=== PATIENT | male | born 1930 | race Caucasian/White ===

== ENCOUNTER → 2017-05-08 | Outpatient (CLI) | payer MEDICARE, OTHER ==
[~2017-05-08] MED LIST: AFRIN15 ML NS; ASPIR 8181 MG PO; ASPIRIN EC325 M1 PO; AUGMENTIN 875875 MG PO; AVODART0.5 MG PO; CILOSTAZOL 100100 MG PO; CIPRO500 M1 PO; CIPROFLOXACIN500 M1 PO; COLACE100 MG PO; ELMIRON 100 MG100 M1 PO; FLOMAX0.4 MG PO; HCTZ PO; HYDROCODONE-AP1 EAC6 PAD; HYDROCODONE-AP1 EAC6 PO; HYOSCYAMINE0.125 MG PO; IMDUR 60 MG TAB60 M1 PO; IMDUR60 MG PO; ISORDIL40 MG PO; LIPITOR10 MG PO; LIPITOR40 MG PO; LIPITOR80 MG PO; LISINOPRIL40 MG PO; LOPRESSOR25 PO; NITROFURANTOIN100 MG PO; NITROGLYCERIN0.4 MG PO; NITROGLYCERIN0.4 MG SUBLING; NITROQUICK0.4 MG SL; NORVASC 5 MG TAB5 MG PO; NORVASC10 MG PO; NORVASC5 MG PO; PHENAZOPYRIDIN200 M2 PO; PLAVIX 75 MG TA75 M1 PO; PRAVACHOL40 MG PO; PRAVACHOL80 MG PO; PRINIVIL20 MG PO; PROSCAR 5MG TABL5 MG PO; TOPROL XL100 MG PO; TOPROL XL25 MG PO
[2017-05-08 09:03] LABS: CREATININE 0.9 mg/dL (0.6-1.3)
== END ==
LOC: M.LAB 08:28 → M.CT 08:30
PROVIDERS: Family Medicine
DX: R91.1 Solitary pulmonary nodule (principal); I25.10 Atherosclerotic heart disease of native coronary artery without angina pectoris; I10 Essential (primary) hypertension; I95.9 Hypotension, unspecified

== ENCOUNTER → 2018-07-08 | Outpatient (CLI) | payer MEDICARE, OTHER ==
--- NOTE | 2018-07-08 10:39 | 2DMMODE ---
[place] [address] 2 D/M-MODE ECHOCARDIOGRAM Name: POSADASMACIEL Room: [facility]#: [id number] Admission: 07/08/18 Attend Phys: Chay Moore, Discharge: Date of : 32 Date of Service: 07/08/18 [facility] Report #: [id number] THIS REPORT FOR: //name// APPROVED REPORT Study performed: 07/08/2018 09:52:47 EXAM: Comprehensive 2D, Doppler, and color-flow Echocardiogram Patient Location: Out-Patient BSA: 1.86 HR: 69 bpm BP: 150/69 mmHg Other Information Study Quality: Good Indications Aortic Valve Disease 2D Dimensions IVSd: 14.24 (7-11mm) LVOT Diam: 20.53 (18-24mm) LVDd: 51.39 mm PWd: 11.23 (7-11mm) Ascending Ao: 29.06 (22-36mm) LVDs: 34.54 (25-40mm) Aortic Root: 31.11 mm Volumes Left Atrial Volume (Systole) LA ESV Index: 22.90 mL/m2 Aortic Valve AoV Peak Anam.: 1.93 m/s AO Peak Gr.: 14.82 mmHg LVOT Max P.75 mmHg AO Mean Gr.: 7.89 mmHg LVOT Mean P.40 mmHg LVOT Max V: 1.09 m/s AO V2 VTI: 41.73 cm LVOT Mean V: 0.72 m/s STEPHANIE (VTI): 1.94 cm2 LVOT V1 VTI: 24.46 cm Mitral Valve E/A Ratio: 0.64 MV Decel. Time: 246.56 ms MV E Max Anam.: 0.91 m/s MV PHT: 71.50 ms MVA (PHT): 3.08 [place]2 [place] [address] 2 D/M-MODE ECHOCARDIOGRAM Name: MACIEL POSADAS ARON Room: [facility]#: [id number] Admission: 07/08/18 Attend Phys: Chay Moore, Discharge: Date of : 32 Date of Service: 07/08/18 1038 Report #: [id number] TDI E/Lateral E': 13.00 E/Medial E': 10.11 Medial E' Anam.: 0.09 m/s Lateral E' Anam.: 0.07 m/s Pulmonary Valve PV Peak Anam.: 0.96 m/s PV Peak Gr.: 3.68 mmHg Left Ventricle The left ventricle is normal size. There is akinesis involving the inferior andl inferolateral yi. There is normal left ventricular wall thickness. Left ventricular systolic function is mildly decreased. LVEF is 45-50%. Grade I - abnormal relaxation pattern. Right Ventricle The right ventricle is normal size. The right ventricular systolic function is normal. Atria The left atrium size is normal. The right atrium size is normal. Aortic Valve Aortic valve is mildly calcified. No aortic regurgitation is present. Mild aortic stenosis. Mitral Valve The mitral valve is normal in structure. Mild mitral regurgitation. No evidence of mitral valve stenosis. Tricuspid Valve The tricuspid valve is normal in structure. There is no tricuspid valve regurgitation noted. Pulmonic Valve The pulmonary valve is normal in structure. There is no pulmonic valvular regurgitation. Great Vessels The aortic root is normal in size. IVC is normal in size and collapses >50% with inspiration. Pericardium There is [place] [address] 2 D/M-MODE ECHOCARDIOGRAM Name: MACIEL POSADAS ARON [id number] Admission: 07/08/18 Attend Phys: Chay Moore, Discharge: Date of : 32 Date of Service: 07/08/18 [facility] Report #: [id number] <Conclusion> The left ventricle is normal size. There is normal left ventricular wall thickness. Left ventricular systolic function is mildly decreased. LVEF is 45-50%. Grade I - abnormal relaxation pattern. There is akinesis involving the inferior andl inferolateral yi. Aortic valve is mildly calcified. Mild aortic stenosis. Mild mitral regurgitation. IVC is normal in size and collapses >50% with inspiration. <ELECTRONICALLY SIGNED> By: Chay Moore MD, FACC 07/08/18 1038 1038 1038 Chay Moore MD, FACC /INF
== END ==
LOC: M.CRD 04-29 09:00
DX: I08.0 Rheumatic disorders of both mitral and aortic valves (principal)

== ENCOUNTER → 2018-08-03 | Outpatient (CLI) | payer MEDICARE, OTHER ==
--- NOTE | 2018-08-03 17:05 | CARDNUC ---
[place] [address] CARDIAC NUCLEAR IMAGING REPORT Name: CUAUHTEMOCST ARON Room: [facility]#: [id number] Admission: 08/03/18 Attend Phys: Chay Moore, Discharge: Date of : 32 Date of Service: 08/03/18 1705 Report #: [id number] THIS REPORT FOR: //name// APPROVED REPORT Study performed: 08/03/2018 09:43:05 Indication: Chest pain, Dyspnea Patient Location: Out-Patient Stress Tech: Angie Price Stress Nurse: Siena Carlin RN Ht: 5 ft 6 in Wt: 169 lbs BSA: 1.86 m2 BMI: 27.27 Medical History Medical History: Angina, CAD s/p WI, CAD s/p stent, Fatigue, Former Smoker, HTN, PVD, SOB, Weakness Medications: Carvedilol, Isosorbide, Lisinopril, Lasix, ASA 81 Mg, Digoxin, Amlodipine. Allergies: Sulfa Cardiac Risk Factors: Age, FHX of CAD, HTN, SOB, Tobacco History (Former), PVD. Previous Cardiac Procedures: Myocardial infarction, PCI Pretest Chest Pain Characteristics: No chest pain Exercise History: Sedentary Physical Disabilities: Unstable gait, weak knees. Meds Held (24 hrs): Carvedilol, Isosorbide. Resting Data Rest SPECT myocardial perfusion imaging was performed in supine position 30 minutes following the intravenous injection of 11.3 mCi of Tc-99m Sestamibi. Time of rest injection: 07:55 The images were gated to evaluate regional wall motion and calculate left ventricular ejection fraction. Administration Route: IV Administration Site: Right AC Pharmacologic Stress Pharmacologic stress test was performed by injecting Regadenoson 0.4 mg IV push over 10-15 seconds immediately followed by the intravenous injection of 33.1 mCi of Tc-99m Sestamibi. Time of stress injection: 10:00 Administration Route: [place] [address] CARDIAC NUCLEAR IMAGING REPORT Name: MACIEL POSADAS Room: [facility]#: [id number] Admission: 08/03/18 Attend Phys: Chay Moore, Discharge: Date of : 32 Date of Service: 08/03/18 1705 Report #: [id number] Administration Site: Right AC Heart Rate at time of stress injection: 80 bpm. Gated Stress SPECT was performed 40 minutes after stress injection. The images were gated to evaluate regional wall motion and calculate left ventricular ejection fraction. Prone imaging was performed. Stress Test Details Stress Test: Pharmacologic stress testing performed using 0.4 mg of regadenoson per 5 mL given IV over 10 seconds. Reason for pharmacologic stress test: Unstable gait, weak knees.. HR Max Heart Rate (APMHR): 134 bpm Resting HR: 62 bpm Target HR (85% APMHR): 113 bpm Max HR Achieved: 80 bpm % of APMHR: 59 Recovery HR: 73 bpm BP Resting BP: 208/84 mmHg Max BP: 164/84 mmHg Recovery BP: 178/77 mmHg ECG Resting ECG: Sinus Rhythm, LBBB Stress ECG: Sinus Rhythm, LBBB ST Change: None Arrhythmia: None Recovery ECG: Sinus Rhythm, LBBB Recovery ST Change: None Recovery Arrhythmia: None Clinical Reason for Termination: Completed protocol Stress Symptoms: Dyspnea, Lightheaded, Chest Pressure. Exercise duration: 0 min 0 sec Exercise capacity: 1.00 METs The patient noted mild chest pressure with Lexiscan infusion felt to be due to medication affect. Nurse Comments 87 year old male present with recent increase of SOA and some CP. Patient tolerated sitting Lexiscan. Recovery unremarkable with PO caffeine. Patient escorted by staff to Nuclear Medicine for images. Patient stable with no [place] [address] CARDIAC NUCLEAR IMAGING REPORT Name: CUAUHTEMOCMACIEL Room: [facility]#: [id number] Admission: 08/03/18 Attend Phys: Chay Moore, Discharge: Date of : 32 Date of Service: 08/03/18 1705 Report #: [id number] Stress ECG Conclusion Baseline 12-lead EKG shows sinus rhythm with bundle branch block. EKGs obtained during and post Lexiscan infusion show sinus rhythm with left bundle-branch block. There were no stress-induced arrhythmias. Study Quality Study: Good Artifact: No artifact Study Data At rest, the left ventricular ejection fraction was 42%.. Post stress, the left ventricular ejection was 38%.. TID = 1.03. Perfusion There is a large in size severe intensity fixed defect involving the basal to mid inferior and inferolateral wall consistent with prior infarct. No reversible defects were identified. Wall Motion The inferior wall is akinetic the midportion with portions of the basal inferior and inferolateral wall being hypokinetic. Nuclear Conclusion ECG Findings: non-diagnostic Clinical Findings: equivocal Nuclear Findings: negative for ischemia Exercise Capacity: not assessed Left Ventricular Function: abnormal Myocardial perfusion images show evidence of prior inferolateral infarct with no evidence of ongoing ischemia. Left jugular systolic function appears to be mild moderately decreased consistent with an ischemic cardiomyopathy. This is not a high risk study. <Conclusion> Baseline 12-lead EKG shows sinus rhythm with bundle branch block. EKGs obtained during and post Lexiscan infusion show sinus rhythm with left bundle-branch block. There were no stress-induced arrhythmias. <ELECTRONICALLY SIGNED> By: Chay Moore MD, FACC 08/03/181704 04 04 Chay Moore MD, FACC /INF
== END ==
LOC: M.NUC 07-08 11:24
DX: I25.118 Atherosclerotic heart disease of native coronary artery with other forms of angina pectoris (principal); I10 Essential (primary) hypertension; I73.9 Peripheral vascular disease, unspecified; Z88.2 Allergy status to sulfonamides; Z87.891 Personal history of nicotine dependence; Z95.0 Presence of cardiac pacemaker; Z79.899 Other long term (current) drug therapy; Z82.49 Family history of ischemic heart disease and other diseases of the circulatory system

== ENCOUNTER 2018-08-27 15:56 | Inpatient (IN) | payer MEDICARE, OTHER ==
[~2018-08-27] VITALS: Ht 170.2 cm; Wt 70.3 kg
[2018-08-27] MEDS ORDERED: LASIX 80 MG TAB80 MG PO (16:03)
[2018-08-27] MEDS ORDERED: ASPIR 8181 MG PO (16:04)
[2018-08-27 16:35] LABS: HEMATOCRIT 47.7 % (42.0-52.0); HEMOGLOBIN 16.5 gm/dL (14.0-18.0); MCH 33.3 pg (26.0-34.0); MCHC 34.6 g/dL (28.0-37.0); MCV 96.4 fL (80.0-100.0); MPV 8.2 fl. (7.2-11.1); NUCLEATED RBCS 0 /100WBC; PLATELET COUNT* 194 thou/uL (150-400); RBC 4.94 mil/uL (4.50-6.00); RDW-CV 14.1 % (10.5-14.5); WBC 16.9 thou/uL (4.0-11.0)
[2018-08-27 16:46] LABS: APTT 25.7 Seconds (25.0-31.3); PROTIME 10.6 Seconds (9.20-11.50)
[2018-08-27 17:00] LABS: ABSOLUTE EOSINOPHILS 0.2 thou/uL (0.0-0.7); ABSOLUTE LYMPHOCYTES 0.2 thou/uL (0.8-5.3); ABSOLUTE NEUTROPHILS 15.5 thou/uL (1.6-8.1)
[2018-08-27 17:01] LABS: PLATELET ESTIMATE ADEQUATE
[2018-08-27 17:15] LABS: ALBUMIN 4.1 g/dL (3.4-5.0); ALKALINE PHOSPHATASE 70 U/L (46-116); ANION GAP 11 mmol/L (7-16); BUN 21 mg/dL (7-18); CALCIUM 9.7 mg/dL (8.5-10.1); CHLORIDE 104 mmol/L (98-107); CO2 26 mmol/L (21-32); CREATININE 0.9 mg/dL (0.6-1.3); GLUCOSE 122 mg/dL (70-99); LIPASE 59 U/L (73-393); POTASSIUM 3.7 mmol/L (3.5-5.1); SGOT 22 U/L (15-37); SGPT 28 U/L (30-65); SODIUM 141 mmol/L (136-145); TOTAL BILIRUBIN 1.4 mg/dL (<0.1-1.0); TOTAL PROTEIN 7.7 g/dL (6.4-8.2); TROPONIN-I LEVEL <0.06 ng/mL (<0.06)
[2018-08-27 19:22] VITALS: BP 140/53
[2018-08-27 20:00] VITALS: BP 126/57
--- NOTE | 2018-08-27 20:00 | NUR ---
RECEIVED REPORT FROM ER, ADMITTED TO ROOM AT 1945. PT IS SOB AT REST AND ACTIVITY. O2 ON AT 2L/NC, HOB ELEVATED. TELEMETRY APPLIED SHOWING SR WITH BBB. NO COMPLAINT OF CHEST PAIN. SEE ADMISSION ASSESSMENT AND HX. WILL CONT TO MONITOR AND ASSIST NEEDED.
[2018-08-28] VITALS: BP 153/54
[2018-08-28 04:00] VITALS: BP 167/74
[2018-08-28 05:17] LABS: URINE BILIRUBIN NEGATIVE (Negative); URINE BLOOD NEGATIVE (Negative); URINE CLARITY CLEAR; URINE COLOR YELLOW; URINE GLUCOSE-RANDOM NEGATIVE (Negative); URINE KETONES 1+ (Negative); URINE LEUKOCYTES-REFLEX NEGATIVE (Negative); URINE NITRITE-REFLEX NEGATIVE (Negative); URINE PROTEIN TRACE (Negative); URINE UROBILINOGEN 0.2 E.U./dl (0.2-1.0)
--- NOTE | 2018-08-28 05:52 | NUR ---
SLEPT WELL TONIGHT. O2 SAT 92% ON 2L/NC, PT FEELING VERY SOB, INCREASED TO 4L/NC. FELT BETTER AFTER THIS AND RETURNED TO SLEEP. TELEMETRY SHOWING SR/SB WITH BBB AND TIMES 1ST AVB. HS GOALS OF REST AND SAFETY ACHIEVED. HOURLY ROUNDING OBSERVED. PT VOIDING PER URINAL.
[2018-08-28 08:00] VITALS: BP 133/70; BP 149/62
--- NOTE | 2018-08-28 10:43 | EKG ---
[place] [address] ELECTROCARDIOGRAM REPORT Name: MACIEL POSADAS Room: [address] ADM IN M.R.#: [id number] Admission: 08/27/18 Attend Phys: Codey Farmer, Discharge: Date of : 32 Report #: [id number] THIS REPORT FOR: //name// [facility] ED Test Date: 2018-08-27 Test Time: 16:04:34 Pat Name: MACIEL POSADAS Department: Room: [facility] Gender: M Bag Hanger: [facility] : 1930 Requested By: Nathanael Ruiz Order Number: [id number] MD: Maverick Mortensen Measurements Intervals Lawrence Rate: 84 P: 14 WI: 187 QRS: -34 QRSD: 152 T: 137 QT: 363 QTc: 430 Interpretive Statements Sinus rhythm Probable left atrial enlargement Left bundle branch block Compared to ECG 02/05/2017 17:59:55 Atrial premature complex(es) no longer present Electronically Signed On 08-28-2018 10:42:58 CDT by Maverick Mortensen [email or web address] <ELECTRONICALLY SIGNED> By: Maverick Mortensen MD, [facility] 08/28/18 1042 1604 1604 Maverick Mortensen MD, [facility] /EPI
[2018-08-28 11:42] VITALS: BP 146/56
--- NOTE | 2018-08-28 12:42 | NUR ---
ASSUMED PT CARE AT 0800, AOX4, SBA, O2 SAT AT 90'S 4L NC. TRACING SR, BBB, 1ST DEGREE AV BLOCK ON HEAD OF INSIGHT. PT COMPLAINS OF SOB ON ACTIVITY. PT LUNG SOUND COARSE/CRACKLES. PT ON ANTIBIOTICS. PT ON HEART HEALTHY DIET. LAST BM TODAY. PT HAS 2 IV ACCESS, INTACT. VSS, AM ASSESSMENT CHARTED. MEDS GIVEN PER MAR. HOURLY ROUNDING. CALL LIGHT WITHIN REACH. WILL CONTINUE TO MONITOR.
--- NOTE | 2018-08-28 13:16 | 2DMMODE ---
[place] [address] 2 D/M-MODE ECHOCARDIOGRAM Name: POSADASMACIEL ARON Room: [address] IN [facility]#: [id number] Admission: 08/27/18 Attend Phys: Codey Ray Discharge: Date of : 32 Date of Service: 08/28/18 1315 Report #: [id number] THIS REPORT FOR: //name// APPROVED REPORT Study performed: 08/28/2018 11:11:07 EXAM: Comprehensive 2D, Doppler, and color-flow Echocardiogram Patient Location: In-Patient Room #: 220 Status: routine BSA: 1.89 HR: 72 bpm BP: 149/62 mmHg Rhythm: NSR Other Information Study Quality: Good Indications Dyspnea Syncope Chest Pain 2D Dimensions IVSd: 18.32 (7-11mm) LVOT Diam: 20.24 (18-24mm) LVDd: 48.38 mm PWd: 10.21 (7-11mm) Ascending Ao: 30.54 (22-36mm) LVDs: 38.71 (25-40mm) Aortic Root: 35.82 mm Volumes Left Atrial Volume (Systole) LA ESV Index: 41.30 mL/m2 Aortic Valve AoV Peak Anam.: 2.13 m/s AO Peak Gr.: 18.23 mmHg LVOT Max P.25 mmHg AO Mean Gr.: 10.31 mmHg LVOT Mean P.53 mmHg LVOT Max V: 1.25 m/s AO V2 VTI: 45.77 cm LVOT Mean V: 0.88 m/s STEPHANIE (VTI): 2.00 cm2 LVOT V1 VTI: 28.40 cm Mitral Valve E/A Ratio: 0.94 [place] [address] 2 D/M-MODE ECHOCARDIOGRAM Name: MACIEL POSADAS ARON Room: [address] IN M.R.#: [id number] Admission: 08/27/18 Attend Phys: Codey Ray Discharge: Date of : 32 Date of Service: 08/28/18 1315 Report #: [id number] MV Decel. Time: 171.97 ms MV E Max Anam.: 1.36 m/s MV PHT: 49.87 ms MVA (PHT): 4.41 cm2 TDI E/Lateral E': 15.11 E/Medial E': 22.67 Medial E' Anam.: 0.06 m/s Lateral E' Anam.: 0.09 m/s Pulmonary Valve PV Peak Anam.: 0.93 m/s PV Peak Gr.: 3.48 mmHg Tricuspid Valve RAP Estimate: 5.00 mmHg TR Peak Gr.: 29.18 mmHg RVSP: 34.00 mmHg PA Pressure: 34.00 mmHg Left Ventricle The left ventricle is normal size. moderate inferior hypokinesis septal hypertrophy is present. Left ventricular systolic function is mildly decreased. LVEF is 45-50%. Grade I - abnormal relaxation pattern. Right Ventricle The right ventricle is normal size. The right ventricular systolic function is normal. Atria Left atrium is mild to moderately dilated. The right atrium size is normal. Aortic Valve Aortic valve is mildly calcified. No aortic regurgitation is present. Mild aortic stenosis. Mitral Valve The mitral valve is normal in structure. Mild mitral regurgitation. No evidence of mitral valve stenosis. Tricuspid Valve The tricuspid valve is normal in structure. Trace tricuspid regurgitation. Mild pulmonary hypertension. Pulmonic Valve Pulmonic valve is not well visualized. There [place] [address] 2 D/M-MODE ECHOCARDIOGRAM Name: MACIEL POSADAS Room: [address]#: [id number] Admission: 08/27/18 Attend Phys: Codey Ray Discharge: Date of : 31 Date of Service: 08/28/18 1315 Report #: [id number] regurgitation. Great Vessels The aortic root is normal in size. IVC is not well visualized. Pericardium There is no pericardial effusion. <Conclusion> LVEF is 45-50%. Left atrium is mild to moderately dilated. Mild aortic stenosis. Mild mitral regurgitation. <ELECTRONICALLY SIGNED> By: Maverick Mortensen MD, FACC 08/28/18 1315 14 14 Maverick Mortensen MD, FACC /INF
--- NOTE | 2018-08-28 15:01 | NUR ---
Pt is A&O. Resides at home alone. Independent and active. Pt has a walker and cane that he can use as needed, Pt stated that he primarily uses the walker. No home o2. Hx of [facility]. No hx of SNF. Goal [place]. No needs anticipated.
[2018-08-28 16:05] VITALS: BP 149/64
--- NOTE | 2018-08-28 18:43 | NUR ---
PT HAD VENOUS LOWER EXTREMITY BILATERAL ULTRASOUND. STILL TRACING SR, BBB, 1ST DEGREE ON TELE. O2 SAT MONITOR AT 90'S 4L NC. PT SBA. IV ACCESS INTACT. LAST BM TODAY HOURLY ROUNDING OBSERVED. BED ALARM. WILL CONTINUE TO MONITOR.
[2018-08-28 19:30] VITALS: BP 143/60
[2018-08-29] VITALS (7 sets, daily range): BP systolic 147–190; BP diastolic 60–88
--- NOTE | 2018-08-29 04:47 | NUR ---
ASSUMED CARE OF PT AT 1900. PT IS ALERT AND ORIENTED. PERRLA. UP WITH 1 ASSIST. PT IS VERY SOA AT THIS TIME AND APPEARS TO BE IN FLUID OVERLOAD. PTS O2 WAS TURNED TO 11 LITERS TO GET HIM TO 90%. DR REINOSO NOTIFIED. PT WAS GIVEN 80MG OF LASIX. WILL CONTINUE TO MONITOR PT.
[2018-08-29 05:48] LABS: ABSOLUTE LYMPHOCYTES 0.3 thou/uL (0.8-5.3); ABSOLUTE MONOCYTES 0.9 thou/uL (0.0-1.2); ABSOLUTE NEUTROPHILS 13.5 thou/uL (1.6-8.1); BASOPHILS 0.2 %; EOSINOPHILS 0.1 %; HEMATOCRIT 44.1 % (42.0-52.0); HEMOGLOBIN 14.8 gm/dL (14.0-18.0); MCH 33.1 pg (26.0-34.0); MCHC 33.6 g/dL (28.0-37.0); MCV 98.6 fL (80.0-100.0); MONOCYTES 6.2 %; MPV 8.9 fl. (7.2-11.1); NUCLEATED RBCS 0 /100WBC; PLATELET COUNT* 194 thou/uL (150-400); POLYS 91.5 %; RBC 4.47 mil/uL (4.50-6.00); RDW-CV 14.5 % (10.5-14.5); WBC 14.7 thou/uL (4.0-11.0)
[2018-08-29 05:50] LABS: CALCIUM 8.6 mg/dL (8.5-10.1); MAGNESIUM 2.2 mg/dL (1.8-2.4); POTASSIUM 3.7 mmol/L (3.5-5.1)
--- NOTE | 2018-08-29 18:38 | NUR ---
ASSUMED PT CARE AT 0800, AOX4, UP WITH ASSIST WITH WALKER. PT O2 SAT AT 90'S 5L NC. PT DENIES PAIN. TRACING SR, BBB, 1ST DEGREE ON MONITOR. ABDOMEN SOFT AND ROUND. PT LUNG SOUND COARSE/CRACKLES. VSS, AM ASSESSMENT CHARTED. MEDS GIVEN PER MAR. HOURLY ROUNDING. CALL LIGHT WITHIN REACH. WILL CONTINUE TO MONITOR.
--- NOTE | 2018-08-30 02:24 | NUR ---
ASSUMED CARE OF PT AT 1900. PT IS ALERT AND ORIENTED.PERRLA. NO COMPLAINTS OF PAIN. PT IS VERY SOA. PT REMAINS ON 5 TO 7 LITERS OF O2. PT IS IN SINUS RYTHM ON THE TELEMETRY. PT IS RESTING COMFORTABLY IN BED. RESPIRATIONS ARE EVEN AND NONLABORED. WILL CONTINUE TO MONITOR PT.
[2018-08-30 04:00] VITALS: BP 110/54
--- NOTE | 2018-08-30 07:04 | CON ---
[address] [address] CONSULTATION Name: MACIEL POSADAS Room: [address] IN M.R.#: [id number] Admission: 08/27/18 Attend Phys: Codey Farmer, Discharge: Date of : 32 Report #: [id number] THIS REPORT FOR: //name// CC: Maverick Farmer DATE OF SERVICE: 08/29/2018 REQUESTING PHYSICIAN: Dr. Farmer. REASON FOR CONSULTATION: Shortness of breath. DISCUSSION: The patient is an 87-year-old man who was admitted after presenting to the Emergency Department on 08/27/2018. He had increased cough, congestion as well as chest pain. He was having some discolored secretions at home. He was very short of breath. With the chest pain, he has history of coronary artery disease, came to the Emergency Department. He was seen down in the ED, was noted to have a fever. Room air sats were low. He was obviously having some issues with his breathing. He had crackles heard on exam and was admitted to the hospital. He has been on antibiotics and neb treatments. During the night, he became markedly more short of breath. He had been on O2 at 4 liters. Did require increasing it up to 11 liters. Nursing staff noted he was much more congested. Apparently, he is on chronic Lasix at home. However, that has not been continued. He was given a dose of Lasix during the night IV. He has been diuresing well. Subjectively, he is feeling better. His FiO2 has been turned down to 5 liters. He is not having any chest pain now. He does note his secretions have cleared. PAST MEDICAL HISTORY: Remarkable for coronary artery disease. He has known cardiomyopathy. He has history of having issues with coronary spasm as well as many stents placed in the past. Does follow with Dr. Moore. Apparently, his Lasix at home has been somewhat on a p.r.n. basis depending on how much fluid retention that he is having. He has no prior history of known thromboembolic disease. He is a very remote smoker. He had full pulmonary function studies done in the past, which almost are completely normal. His FEV1 was 2.43, had a ratio of 73% that were consistent with only minimal obstructive process. Besides his coronary artery disease is also remarkable for prostate cancer. He is status post radiation therapy. History of dyslipidemia, hypertension, has required stents, also in the extremities. Known peripheral vascular disease. He has renal artery stenosis. He has had prior retinal detachment surgery is required, spinal stenosis. Old notes indicate and it was thought he may have exercise-induced bronchospasm. HOME MEDICATIONS: Have been Flomax, Lipitor, Imdur, metoprolol, amlodipine, [place] [address] CONSULTATION Name: MACIEL POSADAS Room: [address] IN [facility].#: [id number] Admission: 08/27/18 Attend Phys: Codey Farmer, Discharge: Date of : 32 Report #: [id number] lisinopril, aspirin, Lasix 80 mg p.r.n. daily. He is not on any oxygen or inhalers at home. SOCIAL HISTORY: Remote smoker, quitting greater than 30 years ago. FAMILY HISTORY: Positive for heart disease and strokes. REVIEW OF SYSTEMS: ROS was done. Note positives above. His secretions have cleared. No further chest pain this morning. No recent palpitations. Denies any nausea or vomiting. Currently, he is urinating a lot given the Lasix he just received several hours ago. Not having issues with lower extremity edema. Did have at home the onset of increased cough, mucopurulent secretions. May intermittently have difficulty urinating given his past history of surgeries and the prostate cancer. No syncopal episodes. PHYSICAL EXAMINATION: GENERAL APPEARANCE: An elderly man. Alert, cooperative. Sitting on the edge of the bed, in no acute distress, able to speak in full sentences. VITAL SIGNS: Currently, his FiO2 is at 5 liters. HEENT: Head is normocephalic. Sclerae nonicteric. Mucous membranes a little dry. NECK: Negative for adenopathy. No JVD is noted. HEART: Regular with a grade 1/6 systolic murmur. No S3 is heard. LUNGS: Reveal bibasilar crackles. No wheezing is heard. Excursion is equal. No CVA tenderness. ABDOMEN: Appears soft, without definite hepatosplenomegaly. No lower extremity edema. SKIN: Warm and dry. No clubbing. Radial pulses are present. NEUROLOGIC: He is alert and oriented x 3. LABORATORY AND X-RAY FINDINGS: He had an echocardiogram done yesterday. LV was normal in size. Did have moderate inferior hypokinesis with septal hypertrophy. EF was 45-50%. He had grade 1 diastolic dysfunction noted. RV was normal. He had mild aortic stenosis. Mild mitral regurgitation. Mild pulmonary hypertension. His chemistry profile, BUN 29, creatinine 1.0, potassium is 3.7, serum bicarbonate is 24. ProBNP this morning was just over 3600, which was an increase from admission. White blood cell count on admission 16,900 dropped to 14,700 today, hemoglobin 14.8, hematocrit 44.8. Blood cultures were sent on admission. Those results are pending. Unable to obtain any sputum. A chest x-ray was reviewed. He did have a CT angiogram done of his chest on admission. No pulmonary emboli were seen. Emphysematous changes noted. Some mild atelectatic changes seen. He does have peribronchial thickening noted in lower lung meneses. IMPRESSION: 1. Acute hypoxic respiratory failure, worsened during the night, [place] [address] CONSULTATION Name: MACIEL POSADAS Room: [address] IN [facility].#: [id number] Admission: 08/27/18 Attend Phys: Codey Farmer, Discharge: Date of : 32 Report #: [id number] morning after receiving Lasix, most likely related to pulmonary edema. 2. Acute bronchitis, clinically improving. 3. Acute hypoxic respiratory failure. Did have an increase in O2 needs after admission. 4. History of coronary artery disease, status post prior interventions. Mild decrease in ejection fraction. 5. History of peripheral vascular disease. 6. Remote history of prostate cancer. RECOMMENDATIONS: 1. Continue antibiotics and neb treatments. 2. Diuresis as able. 3. Wean FiO2. <ELECTRONICALLY SIGNED> By: Rosalinda Lopez MD 08/30/18 0704 0906 [id number] Lopez MD /nt
[2018-08-30 08:00] VITALS: BP 169/76
--- NOTE | 2018-08-30 09:59 | NUR ---
RECEVIED REPORT FROM DAYNA AND ASSUMED CARE OF PT @ 6042.PT IS A/O X4,VSS,TRACING SR WITH BBB AND PVCS ON THE MONITOR.PT REMAINS ON 10L O2 NC.RIGHT AC IV PATENT AND SALINE LOCKED.LEFT FOREARM IV PATENT AND SALINE LOCKED.PT IS CALM AND COOPERAITVE WITH NO C/O PAIN.PT IS UP WITH SBA TO BSC.PT LEFT SITTING AT THE EDGE OF THE BED WITH CALL LIGHT AND FALL PRECAUTIONS IN PLACE.WILL CONTINUE TO MONITOR.
[2018-08-30 11:30] VITALS: BP 132/64
[2018-08-30 14:59] LABS: HEMATOCRIT 44.7 % (42.0-52.0); HEMOGLOBIN 15.2 gm/dL (14.0-18.0); MCH 33.1 pg (26.0-34.0); MCHC 34.1 g/dL (28.0-37.0); MCV 97.2 fL (80.0-100.0); MPV 8.8 fl. (7.2-11.1); RBC 4.6 mil/uL (4.50-6.00); RDW-CV 14.2 % (10.5-14.5); WBC 7.8 thou/uL (4.0-11.0)
[2018-08-30 15:05] LABS: CALCIUM 8.9 mg/dL (8.5-10.1); CREATININE 1.2 mg/dL (0.6-1.3); POTASSIUM 3.2 mmol/L (3.5-5.1)
[2018-08-30 16:00] VITALS: BP 129/47
--- NOTE | 2018-08-30 17:35 | NUR ---
VSS.CARDIAC MONITORING IN PLACE WITH NO CHANGES.PT REMAINS ON 10L O2 NC.PT HAS RECEIVED TOTAL OF 80MG OF LASIX TODAY PER ORDER.IV RIGHT AC PATENT AND SALINE LOCKED.IV LEFT FOREARM PATENT AND SALINE LOCKED.PT INFORMED OF PLAN OF CARE AND COMMUNICATES UNDERSTANDING.PT AMBULATED IN ROOM AND TO BSC.HOURLY ROUNDING COMPLETED FOR PT SAFETY.CALL LIGHT AND FALL PRECAUTIONS IN PLACE.WILL CONTINUE TO MONITOR.
[2018-08-31] VITALS: BP 135/55
--- NOTE | 2018-08-31 03:09 | NUR ---
PT ALERT ORIENTED. UP AT BS TO VOID. TELEMETRY SHOWS SR BBB PVC. O2 AT 10 LITERS NC.
[2018-08-31 04:00] VITALS: BP 152/66
[2018-08-31 04:16] LABS: ABSOLUTE LYMPHOCYTES 0.4 thou/uL (0.8-5.3); ABSOLUTE MONOCYTES 0.2 thou/uL (0.0-1.2); ABSOLUTE NEUTROPHILS 5.5 thou/uL (1.6-8.1); BASOPHILS 0.2 %; HEMOGLOBIN 16.4 gm/dL (14.0-18.0); LYMPHOCYTES 5.9 %; MCH 33.2 pg (26.0-34.0); MCHC 34.1 g/dL (28.0-37.0); MCV 97.5 fL (80.0-100.0); MONOCYTES 3.5 %; MPV 8.6 fl. (7.2-11.1); NUCLEATED RBCS 0 /100WBC; PLATELET COUNT* 223 thou/uL (150-400); POLYS 90.4 %; RBC 4.93 mil/uL (4.50-6.00); RDW-CV 14.3 % (10.5-14.5); WBC 6.1 thou/uL (4.0-11.0)
[2018-08-31 04:32] LABS: ALBUMIN 3.3 g/dL (3.4-5.0); CALCIUM 9.5 mg/dL (8.5-10.1); CREATININE 1.1 mg/dL (0.6-1.3); POTASSIUM 3.4 mmol/L (3.5-5.1); TOTAL BILIRUBIN 0.6 mg/dL (<0.1-1.0); TOTAL PROTEIN 7.4 g/dL (6.4-8.2)
[2018-08-31 08:00] VITALS: BP 136/61
--- NOTE | 2018-08-31 11:17 | NUR ---
ASSUMED CARE OF PT AT 0730. PT RESTING IN BED. PT A&0X4, DENIES ANY PAIN OR SHORTNESS OF BREATH AT THIS TIME. PT STATES HE IS READY TO GO HOME.PT TRACING SR WITH BBB ON THE SAMPLE WORKER. ON 7L HIGH FLOW NC SAT UPPER 90'S. PT UP AD LUCIA IN ROOM. VOIDS PER URINAL. PT RECEIVING IV ABX. IV STEROIDS ADDED TODAY PER DR MANCILLA WITH PULMONARY. REFER TO EMAR. PT TO HAVE REPEAT CXR THIS AM. PT GOAL FOR TODAY IS CONTINUE TO TITRATE OXYGEN TO KEEP SATURATION ABOVE 90%, PULM CONSULT IN PLACE, INCREASE ACTIVITY AND IV ABX AND STEROIDS. AM ASSESSMENT CHARTED. MEDICATIONS PER MAY. PT REPOSITIONS SELF. HOURLY ROUNDING OBSERVED. BED IN LOW POSITION. CALL LIGHT WITHIN REACH. WILL CONTINUE PLAN OF CARE.
[2018-08-31 11:51] LABS: CALCIUM 9.4 mg/dL (8.5-10.1); CREATININE 1.1 mg/dL (0.6-1.3); MAGNESIUM 2.4 mg/dL (1.8-2.4); POTASSIUM 3.2 mmol/L (3.5-5.1)
[2018-08-31 12:24] VITALS: BP 122/54
[2018-08-31 16:26] VITALS: BP 137/53
--- NOTE | 2018-08-31 16:59 | CON ---
[address] [address] CONSULTATION Name: MACIEL POSADAS Room: [address] IN M.R.#: [id number] Admission: 08/27/18 Attend Phys: Codey Farmer, Discharge: Date of : 31 Report #: [id number] THIS REPORT FOR: //name// CC: Maverick Quesada DO Chay Farmer DATE OF SERVICE: 08/28/2018 CARDIOLOGY CONSULTATION HISTORY OF PRESENT ILLNESS: The patient is an 87-year-old single white male who I was asked to see in the hospital today after he complained of being short of breath. The patient has an extensive past medical history. Unfortunately, most of his old records are not available here at [facility]. He had a history of myocardial infarction years ago and apparently had coronary artery stenting performed at [facility] in [place], [place] in the past. Recently, he has been followed by my partner, Dr. Moore. He also has a long history of PAD with previous right lower extremity bypass. He has had stents placed in both legs at [facility] as well as . He is not very active and uses a cane. He lives by himself. Recently, he has had increasing shortness of breath and a cough. He noticed no fever. He does have occasional chest tightness, although it is nonexertional and does not radiate. He notes occasional irregular heartbeat. He has fallen in the past. PAST MEDICAL HISTORY: He has had cataract extraction. He has a history of hypertension and he has had radiation therapy for prostate cancer. MEDICATIONS: On admission consists of amlodipine, aspirin, Lipitor, Lasix, Imdur, lisinopril, metoprolol, Flomax. ALLERGIES: He has no known drug allergies. FAMILY HISTORY: His mother had heart disease. SOCIAL HISTORY: He is , lives by himself in [place], [place]. Quit smoking years ago. Occasionally drinks alcohol. REVIEW OF SYSTEMS: He has had no history of stroke, asthma, peptic ulcer disease, liver disease, kidney disease, cancer, psychiatric illness, chronic skin condition. PHYSICAL EXAMINATION: GENERAL: Revealed an elderly male, lying in bed, appeared in no acute distress. VITAL SIGNS: He had a blood pressure 140/70, pulse 70. He is afebrile, [place] [address] CONSULTATION Name: MACIEL POSADAS Room: [address]#: [id number] Admission: 08/27/18 Attend Phys: Codey Farmer, Discharge: Date of : 31 Report #: [id number] although he was 101 on admission. HEENT: He was anicteric. Conjunctivae pink. Mucous members moist. NECK: Veins do not appear distended. CHEST: Coarse breath sounds bilaterally. CARDIAC: Regular rate and rhythm, grade 3 systolic ejection murmur, lower sternal border. ABDOMEN: Soft. EXTREMITIES: Had no edema. Dorsalis pedis pulse could not be palpated. SKIN: Cool and dry. NEUROLOGIC: Nonfocal. LABORATORY DATA: His ECG on admission showed a sinus rhythm with a left bundle-branch block. His workup on admission, he had a portable chest x-ray that showed some atelectasis, tortuous aorta, no pulmonary infiltrate. He had a CT scan of the chest using a PE protocol that showed no pulmonary embolus, evidence of COPD, atherosclerotic disease. His lab work, sodium 141, creatinine 0.9, glucose 122. His liver function studies were normal. Troponins 0.06. BNP 1532. White blood cell count 16.9, hemoglobin 16.5. IMPRESSION RECOMMENDATIONS: 1. Chronic obstructive pulmonary disease. 2. Bronchitis. 3. Coronary artery disease. No evidence of myocardial infarction. 4. Hypertension. The patient has been on a calcium helga, beta helga and diuretic. 5. History of prostate cancer. 6. Previous tobacco abuse. 7. Peripheral arterial disease with multiple stents and bypass surgery. The patient has stable claudication. <ELECTRONICALLY SIGNED> By: Maverick Mortensen MD, FACC 08/31/18 1659 1215 [id number] Mortensen MD, FAC /nt
--- NOTE | 2018-08-31 18:18 | NUR ---
NO ACUTE CHANGES THROUGHOUT SHIFT. REFER TO CHARTING. PT PROGRESSING TOWARDS GOALS-TITRATED OXYGEN TO 5L HIGH FLOW NC SAT UPPER 90'S. PT DENIES ANY PAIN THROUGHOUT SHIFT. PT UP SBA TO BATHROOM. POTASSIUM BEING REPLACED PER ELECTROLYTE PROTOCOL. REFER TO EMAR. PT RECEIVING IV ABX AND IV STEROIDS. CONTINUES TO TRACE SR WITH BBB ON THE VP OF GLOBAL MARKETING. MEDICATIONS PER MAY. PT REPOSITIONS SELF. HOURLY ROUNDING OBSERVED. BED IN LOW POSITION. CALL LIGHT WITHIN REACH. WILL CONTINUE PLAN OF CARE.
[2018-08-31 20:00] VITALS: BP 125/68
[2018-09-01 00:48] VITALS: BP 169/67
--- NOTE | 2018-09-01 05:16 | NUR ---
ASSUMED PT CARE AT 1930. ASSESSMENT COMPLETED CHARTED. ABLE TO MAKE NEEDS KNOWN. UP AD LUCIA IN ROOM. NO C/O PAIN OR DISCOMFORT. PT RESTING IN BED AT THIS TIME. STATES HE WANTS TO GO HOME TODAY AND KEEPS ASKING WHEN HE CAN GET THE IVS TAKEN OUT. WILL CONTINUE TO MONITOR.
[2018-09-01 05:22] LABS: CALCIUM 9.3 mg/dL (8.5-10.1); CREATININE 1.3 mg/dL (0.6-1.3); POTASSIUM 3.6 mmol/L (3.5-5.1); TOTAL BILIRUBIN 0.4 mg/dL (<0.1-1.0); TOTAL PROTEIN 6.5 g/dL (6.4-8.2)
[2018-09-01 05:23] VITALS: BP 139/55
[2018-09-01 05:23] LABS: HEMATOCRIT 44.8 % (42.0-52.0); HEMOGLOBIN 15.3 gm/dL (14.0-18.0); MCH 33.3 pg (26.0-34.0); MCHC 34.3 g/dL (28.0-37.0); MCV 97.3 fL (80.0-100.0); MPV 9.1 fl. (7.2-11.1); RBC 4.6 mil/uL (4.50-6.00); RDW-CV 14.3 % (10.5-14.5); WBC 8.5 thou/uL (4.0-11.0)
[2018-09-01 07:35] VITALS: BP 162/62
--- NOTE | 2018-09-01 08:12 | NUR ---
ASSUMED CARE OF PT AT 0730. PT RESTING IN BED WAITING FOR BREAKFAT. PT A&0X4, DENIES ANY PAIN OR SHORTNESS OF BREATH AT THIS TIME, PT STATES HE IS SLEEPY AND DID NOT SLEEP WELL LAST NIGHT. PT TRACING SR WITH BBB ON THE MASTER CONTROL TECHNICIAN. ON 3L NC SAT 94%. PT UP AD LUCIA IN ROOM. PT GOAL FOR TODAY IS TO CONTINUE TO TITRATE OXYGEN, HAVE A BOWEL MOVEMENT, INCREASE ACTIVITY AND DISCHARGE PLANNING. AM ASSESSMENT CHARTED. MEDICATIONS PER MAY. PT REPOSITIONS SELF. HOURLY ROUNDING OBSERVED. BED IN LOW POSITION. CALL LIGHT WITHIN REACH. WILL CONTINUE PLAN OF CARE.
[2018-09-01 16:03] VITALS: BP 141/56
--- NOTE | 2018-09-01 18:17 | NUR ---
NO ACUTE CHANGES THROUGHOUT SHIFT. REFER TO CHARTING. PT PROGRESSING TOWARDS GOALS. PT TITRATED TO ROOM AIR SAT 93%. PT DENIES ANY PAIN OR SHORTNESS OF BREATH THROUGHOUT AFTERNOON. PROBABLE DISCHARGE TOMORROW 09/02. PULM SEEN PT TODAY- ORDERS RECEIVED FOR ONE TIME DOSE OF IV LASIX. REFER TO EMAR. PT HAD REPEAT CXR TODAY. REFER TO RESULTS. CONTINUES TO TRACE SR WITH BBB ON THE SECTION HAND. PT UP AD LUCIA IN ROOM. MEDICATIONS PER MAY. PT REPOSITIONS SELF. HOURLY ROUNDING OBSERVED. BED IN LOW POSITION. CALL LIGHT WITHIN REACH. WILL CONTINUE PLAN OF CARE.
[2018-09-01 20:00] VITALS: BP 142/53
[2018-09-01 23:59] VITALS: BP 147/49
[2018-09-02 04:00] VITALS: BP 187/85
[2018-09-02 05:43] LABS: HEMATOCRIT 41.8 % (42.0-52.0); HEMOGLOBIN 14.5 gm/dL (14.0-18.0); MCH 33.9 pg (26.0-34.0); MCHC 34.7 g/dL (28.0-37.0); MCV 97.6 fL (80.0-100.0); MPV 8.5 fl. (7.2-11.1); RBC 4.29 mil/uL (4.50-6.00); WBC 8.6 thou/uL (4.0-11.0)
[2018-09-02 05:54] LABS: ALBUMIN 2.8 g/dL (3.4-5.0); CALCIUM 9.3 mg/dL (8.5-10.1); MAGNESIUM 2.6 mg/dL (1.8-2.4); POTASSIUM 4.4 mmol/L (3.5-5.1); TOTAL BILIRUBIN 0.4 mg/dL (<0.1-1.0); TOTAL PROTEIN 5.9 g/dL (6.4-8.2)
--- NOTE | 2018-09-02 06:55 | NUR ---
ASSUMED PT CARE AT 1930. ASSESSMENT COMPLETED CHARTED. ABLE TO MKAE NEEDS KNOWN. UP AD LUCIA. NO C/O PAIN OR DISCOMFORT. PT RESTED IN BED ALL NIGHT. POSS D/C TODAY. WILL CONTINUE TO MONITOR.
[2018-09-02 07:56] VITALS: BP 149/67
--- NOTE | 2018-09-02 10:02 | NUR ---
Spoke with pulleti, faxed nebulizer order to Marissa at [facility]. Anticipate dc today.
--- NOTE | 2018-09-02 10:18 | NUR ---
ASSUMED CARE OF PT AT 0730. PT RESTING AT EDGE OF BED WAITING FOR BREAKFAST. PT A&0X4, DENIES ANY PAIN OR SHORTNESS OF BREATH AT THIS TIME. PT STATES HE IS READY TO GO HOME. PT TRACING SR WITH BBB ON THE GEOTHERMAL FIELD TECHNICIAN. ON RA SAT UPPER 90'S. PT UP AD LUCIA IN ROOM. PT GOAL FOR TODAY IS BE SEEN BY PULMONARY AND DISCHARGE PLANNING TO HOME. AM ASSESSMENT CHARTED. MEDICATIONS PER MAR. PT REPOSITIONS SELF. HOURLY ROUNDING OBSERVED. BED IN LOW POSITION. CALL LIGHT WITHIN REACH. WILL CONTINUE PLAN OF CARE.
[2018-09-02 12:36] VITALS: BP 195/64
[2018-09-02] MEDS ORDERED: PREDNISONE 10 M10 MG PO (14:26)
[2018-09-02] MEDS ORDERED: LEVAQUIN 500 M500 M3 PO (14:27)
[2018-09-02] MEDS ORDERED: ALBUTEROL2.5 MG/31 INH (14:32)
[2018-09-02 14:41] VITALS: BP 151/67
--- NOTE | 2018-09-02 14:50 | NUR ---
DISCHARGE ORDERS RECEIVED. DISCHARGE INSTRUCTIONS, CARE NOTES, SCRIPTS AND FOLLOW UP APPTS GIVEN TO PT. PT COMMUNICATES UNDERSTANDING OF DISCHARGE TEACHING. IV'S AND POLICE CHIEF REMOVED. PT DISCHARGED WITH ALL BELONGINGS AND PAPERWORK VIA WHEELCHAIR WITH NURSING STAFF TO SONS OWN PERSONAL VEHICLE.
--- NOTE | 2018-09-02 14:54 | NUR ---
PT. DISCHARGED HOME PRIOR TO O.T. EVAL. PLEASE ORDER FURTHER O.T. SERVICES IF NEEDED.
--- NOTE | 2018-09-02 15:09 | NUR ---
Spoke with patient about his heart failure diagnosis. Provided education regarding heart failure and the medications that the patient will be receiving upon discharge. Answered all of the patient's questions about the education we provided. Instructed patient to call the pharmacy if he has any questions. Please call pharmacy with any questions. Thank you. Leroy Nixon, Jackhammer Splitter Operator I agree with above, Bettina Mosley,Pharm D
--- NOTE | 2018-09-07 10:28 | D ---
[address] [address] DISCHARGE SUMMARY Name: MACIEL POSADAS Room: [address] IN .R.#: [id number] Admission: 08/27/18 Attend Phys: Codey Farmer, Discharge: 09/02/18 Date of : 31 Report #: [id number] THIS REPORT FOR: //name// CC: Maverick Quesada DO Chay Farmer DATE OF SERVICE: 09/02/2018 DISCHARGE DIAGNOSES: 1. Acute diastolic congestive heart failure, acute chronic obstructive pulmonary disease exacerbation, and acute hypoxic respiratory failure, resolved. 2. Coronary artery disease with history of ischemic cardiomyopathy. 3. Peripheral vascular disease, hypertension, hyperlipidemia, remote tobaccoism, sepsis, hypokalemia. HOSPITAL COURSE: The patient is an 87-year-old gentleman who presented to us here complaining of shortness of breath. He was noted to have COPD exacerbation. He was diuresed. Pulmonary was consulted. He had a CT chest that showed evidence of pulmonary embolism, but there is an upper lobe predominance of emphysema, scattered atelectasis. He was placed on antibiotics and diarrhea is now doing well. He was also had nebulizer treatment. He is doing well now. He will then be discharged to home. DISPOSITION: Stable. DISCHARGE PHYSICAL EXAMINATION: VITAL SIGNS: Temperature 36.5, heart rate 57, respiratory rate 18, blood pressure 195/64, rechecked before discharge was 159/64 earlier. GENERAL: The patient is alert and oriented x 3, sitting up in a chair, not in acute respiratory distress. HEENT: Normocephalic, atraumatic. Nares patent. Clear oropharynx. NECK: Supple. No lymphadenopathy. CARDIOVASCULAR: Normal rate, regular rhythm. No murmurs noted. RESPIRATORY: Clear to auscultation bilaterally. No crackles. GASTROINTESTINAL: Abdomen is soft, nontender, good bowel sounds. No organomegaly. GENITOURINARY: Deferred. MUSCULOSKELETAL: Good strength. NEUROLOGIC: Grossly normal. PSYCHIATRIC: The patient is calm patient will be discharged to home. Follow up with PCP in 3-5 days. Pulmonary per them. Notify the physician if there is temperature 38, shortness of breath, chest pain. DIET: 2 gram sodium diet and 1500 [place] [address] DISCHARGE SUMMARY Name: MACIEL POSADAS ARON Room: [address]#: [id number] Admission: 08/27/18 Attend Phys: Codey Farmer, Discharge: 09/02/18 Date of : 31 Report #: [id number] ACTIVITY: Resume usual activity. DISCHARGE MEDICATIONS: Include amlodipine 5 mg daily, aspirin 81 mg daily, atorvastatin 20 mg at bedtime, Lasix 80 mg daily, isosorbide mononitrate 60 mg daily, lisinopril 20 mg b.i.d., metoprolol 100 mg p.o. daily, tamsulosin 0.4 mg sublingual b.i.d., prednisone 40 mg daily x 3 days, then 20 mg a day x 3 days, then discontinue Levaquin 500 mg p.o. daily x 3 days. I spent 38 minutes taking care of this patient today. <ELECTRONICALLY SIGNED> By: Leonora Eller MD 09/07/18 1028 1341 [id number] Eller MD /nt
== END 2018-09-02 14:54 | disposition home health service (06) | DRG 871 ==
LOC: M.ERS 15:56 → M.TBA-ER 17:23 → M.2W 17:23
PROVIDERS: Internal Medicine Pulmonary Disease; Physician Assistant; ADMIT Family Medicine
DX: A41.9 Sepsis, unspecified organism (principal); J96.01 Acute respiratory failure with hypoxia; J18.9 Pneumonia, unspecified organism; I50.33 Acute on chronic diastolic (congestive) heart failure; I26.99 Other pulmonary embolism without acute cor pulmonale; I25.10 Atherosclerotic heart disease of native coronary artery without angina pectoris; I73.9 Peripheral vascular disease, unspecified; E78.5 Hyperlipidemia, unspecified; E87.6 Hypokalemia; J20.9 Acute bronchitis, unspecified; I11.0 Hypertensive heart disease with heart failure; I25.5 Ischemic cardiomyopathy; J43.2 Centrilobular emphysema; Z87.891 Personal history of nicotine dependence; Z79.899 Other long term (current) drug therapy; Z82.49 Family history of ischemic heart disease and other diseases of the circulatory system; Z82.3 Family history of stroke; Z85.46 Personal history of malignant neoplasm of prostate

== ENCOUNTER → 2018-09-08 | Outpatient (CLI) | payer MEDICARE, OTHER ==
[~2018-09-08] MED LIST changes: +ALBUTEROL2.5 MG/31 INH; +LASIX 80 MG TAB80 MG PO; +LEVAQUIN 500 M500 M3 PO; +PREDNISONE 10 M10 MG PO
[2018-09-08 10:14] LABS: CALCIUM 9.1 mg/dL (8.5-10.1); CREATININE 1.1 mg/dL (0.6-1.3); POTASSIUM 4.9 mmol/L (3.5-5.1)
== END ==
LOC: M.LAB 09:33
PROVIDERS: Nurse Practitioner
DX: I10 Essential (primary) hypertension (principal)

== ENCOUNTER 2018-09-16 17:51 | Inpatient (IN) | payer MEDICARE, OTHER ==
[~2018-09-16] VITALS: Ht 167.6 cm; Wt 72.6 kg
[2018-09-16 18:12] VITALS: BP 149/50
[2018-09-16 18:23] LABS: ABSOLUTE EOSINOPHILS 0.1 thou/uL (0.0-0.7); ABSOLUTE MONOCYTES 0.8 thou/uL (0.0-1.2); ABSOLUTE NEUTROPHILS 4.9 thou/uL (1.6-8.1); BASOPHILS 0.4 %; EOSINOPHILS 1.8 %; HEMATOCRIT 42.1 % (42.0-52.0); HEMOGLOBIN 14.3 gm/dL (14.0-18.0); LYMPHOCYTES 15.1 %; MCH 32.8 pg (26.0-34.0); MCV 96.6 fL (80.0-100.0); MONOCYTES 11.3 %; MPV 8.2 fl. (7.2-11.1); NUCLEATED RBCS 0 /100WBC; PLATELET COUNT* 229 thou/uL (150-400); POLYS 71.4 %; RBC 4.36 mil/uL (4.50-6.00); RDW-CV 13.7 % (10.5-14.5); WBC 6.9 thou/uL (4.0-11.0)
[2018-09-16 18:31] LABS: ANION GAP 9 mmol/L (7-16); BUN 20 mg/dL (7-18); CALCIUM 9.6 mg/dL (8.5-10.1); CHLORIDE 105 mmol/L (98-107); CO2 32 mmol/L (21-32); CREATININE 1.2 mg/dL (0.6-1.3); GLUCOSE 132 mg/dL (70-99); POTASSIUM 3.5 mmol/L (3.5-5.1); SODIUM 146 mmol/L (136-145)
[2018-09-16 18:35] LABS: APTT 26.4 Seconds (25.0-31.3); INR 0.9; PROTIME 9.7 Seconds (9.20-11.50)
[2018-09-16 18:41] LABS: ALBUMIN 3.1 g/dL (3.4-5.0); ALKALINE PHOSPHATASE 68 U/L (46-116); LIPASE 211 U/L (73-393); SGOT 20 U/L (15-37); SGPT 32 U/L (30-65); TOTAL BILIRUBIN 0.5 mg/dL (<0.1-1.0); TOTAL PROTEIN 6.6 g/dL (6.4-8.2); TROPONIN-I LEVEL <0.06 ng/mL (<0.06)
[2018-09-16 18:50] LABS: pH 7.404 (7.340-7.450)
[2018-09-16 18:51] LABS: BE 0.2 mmol/L (-2 to +3); PCO2 40.8 mmHg (35.0-45.0); PO2 68.2 mmHg (75.0-100.0)
--- NOTE | 2018-09-16 18:55 | NUR ---
REPORT GIVEN TO COLLEEN THOMPSON WHO IS TO ASSUME PT CARE AT THIS TIME.
[2018-09-16 21:13] VITALS: BP 140/57
[2018-09-16] MEDS ORDERED: COREG12.5 MG PO (21:54)
[2018-09-17 04:00] VITALS: BP 140/44
[2018-09-17 04:37] LABS: ABSOLUTE EOSINOPHILS 0.1 thou/uL (0.0-0.7); ABSOLUTE LYMPHOCYTES 0.6 thou/uL (0.8-5.3); ABSOLUTE MONOCYTES 0.4 thou/uL (0.0-1.2); ABSOLUTE NEUTROPHILS 5.3 thou/uL (1.6-8.1); BASOPHILS 0.3 %; EOSINOPHILS 1.1 %; HEMATOCRIT 39.4 % (42.0-52.0); HEMOGLOBIN 13.2 gm/dL (14.0-18.0); MCH 32.5 pg (26.0-34.0); MCHC 33.6 g/dL (28.0-37.0); MCV 96.8 fL (80.0-100.0); MONOCYTES 6.1 %; MPV 8.6 fl. (7.2-11.1); NUCLEATED RBCS 0 /100WBC; PLATELET COUNT* 214 thou/uL (150-400); POLYS 83.5 %; RBC 4.07 mil/uL (4.50-6.00); RDW-CV 13.4 % (10.5-14.5); WBC 6.4 thou/uL (4.0-11.0)
[2018-09-17 04:56] LABS: ANION GAP 7 mmol/L (7-16); BUN 19 mg/dL (7-18); CALCIUM 9.8 mg/dL (8.5-10.1); CHLORIDE 109 mmol/L (98-107); CHOLESTEROL 189 mg/dL (<200); CO2 30 mmol/L (21-32); GLUCOSE 138 mg/dL (70-99); HDL CHOLESTEROL 45 mg/dL (>40); LDL CHOLESTEROL 128 mg/dL (<100); MAGNESIUM 2.2 mg/dL (1.8-2.4); POTASSIUM 4.4 mmol/L (3.5-5.1); SODIUM 146 mmol/L (136-145); TC:HDL 4.2 Ratio (Not establshd); TRIGLYCERIDE 81 mg/dL (<150); TROPONIN-I LEVEL <0.06 ng/mL (<0.06); VLDL 16 mg/dL (<40)
[2018-09-17 05:13] LABS: SERUM ASSESSMENT Clear
--- NOTE | 2018-09-17 05:31 | NUR ---
RECEIVED REPORT FROM STOCK AND STATION AGENT JAY AT 2031. PT ARRIVED TO ROOM VIA CART AT 2116. PT AAOX4, ORIENTED TO ROOM AND CALL LIGHT. DENIES CHEST PAIN THIS SHIFT. NEGATIVE SEPSIS SCREENING UPON ADMISSION. HOURLY ROUNDING COMPLETED. FALL PRECAUTIONS IN PLACE. CALL LIGHT WITHIN REACH.
[2018-09-17 08:00] VITALS: BP 141/52
--- NOTE | 2018-09-17 10:51 | EKG ---
[place] [address] ELECTROCARDIOGRAM REPORT Name: POSADASMACIEL Room: [address] ADM IN .R.#: [id number] Admission: 09/16/18 Attend Phys: Jada Myers MD Discharge: Date of : 31 Report #: [id number] THIS REPORT FOR: //name// [facility] ED Test Date: 2018-09-16 Test Time: 18:06:29 Pat Name: MACIEL POSADAS Department: Room: [facility] Gender: M Geology Associate: : 1930 Requested By: Alyssa Garcia Order Number: [id number] MD: Maverick Mortensen Measurements Intervals [place] Rate: 60 P: 3 NE: 196 QRS: -37 QRSD: 148 T: 102 QT: 419 QTc: 419 Interpretive Statements Sinus rhythm Left bundle branch block Compared to ECG 08/27/2018 16:04:34 No significant changes Electronically Signed On 09-17-2018 10:50:52 CDT by Maverick Mortensen [email or web address] <ELECTRONICALLY SIGNED> By: Maverick Mortensen MD, [facility] 09/17/18 1050 180 05 Maverick Mortensen MD, [facility] /EPI
--- NOTE | 2018-09-17 11:13 | NUR ---
SW met with pt to complete initial assessment, introduce self, and SW role. Pt alert, oriented, pleasant. Pt lives alone and has children who are supportive; they help each other with farmland, grass and cattle. 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 Pt has nebulizer, RW, cane and hx with [facility] services. Pt might need home oxygen at dc. SW to continue to follow to assist with safe dc planning.
[2018-09-17 11:48] VITALS: BP 148/48
[2018-09-17 15:44] VITALS: BP 157/56
--- NOTE | 2018-09-17 16:12 | NUR ---
PATINET RESTING IN BED. UP WITH STANDBY ASSIST AND WALKER. VIAL SIGNS STABLE AND PATIENT IN NO APPARENT SIGNS OF DISTRESS. HOURLY ROUNDING COMPLETD FOR PATIENT SAFETY
[2018-09-17 20:00] VITALS: BP 146/50
[2018-09-18 04:00] VITALS: BP 157/61
--- NOTE | 2018-09-18 04:23 | NUR ---
ASSUMED PT CARE APPROX 1930. PT IS AWAKE AND COHERENT X4. VSS ON 2L OF O2/NC. PT DENIES PAIN/DISCOMFORT. PT WAS ABLE TO SLEEP MOST OF THE NIGHT. CALL LIGHT WITHIN REACH. FALL PREAUTIONS IN PLACE HOURLY ROUNDING DONE FOR PT SAFETY.
[2018-09-18 05:11] LABS: HEMATOCRIT 43.9 % (42.0-52.0); HEMOGLOBIN 14.6 gm/dL (14.0-18.0); MCH 32.4 pg (26.0-34.0); MCHC 33.2 g/dL (28.0-37.0); MCV 97.6 fL (80.0-100.0); MPV 8.8 fl. (7.2-11.1); NUCLEATED RBCS 0 /100WBC; PLATELET COUNT* 242 thou/uL (150-400); RDW-CV 13.6 % (10.5-14.5); WBC 9.3 thou/uL (4.0-11.0)
[2018-09-18 05:22] LABS: CALCIUM 9.3 mg/dL (8.5-10.1); CREATININE 1.1 mg/dL (0.6-1.3); POTASSIUM 4.1 mmol/L (3.5-5.1)
[2018-09-18 05:47] LABS: ABSOLUTE LYMPHOCYTES 0.4 thou/uL (0.8-5.3); ABSOLUTE MONOCYTES 0.1 thou/uL (0.0-1.2); ABSOLUTE NEUTROPHILS 8.8 thou/uL (1.6-8.1); ANISOCYTOSIS 1+; PLATELET ESTIMATE ADEQUATE; POIKILOCYTOSIS 1+
[2018-09-18 08:00] VITALS: BP 138/51
[2018-09-18] MEDS ORDERED: ALBUTEROL2.5 MG/31 INH (13:21)
[2018-09-18] MEDS ORDERED: FLOMAX0.4 MG PO (13:22)
[2018-09-18] MEDS ORDERED: LIPITOR40 MG PO (13:22)
[2018-09-18] MEDS ORDERED: COREG12.5 MG PO (13:22)
[2018-09-18] MEDS ORDERED: THERA M PLUS T1 EAC2 PO (13:23)
[2018-09-18] MEDS ORDERED: PREDNISONE 20 M20 MG PO (13:23)
[2018-09-18] MEDS ORDERED: PROTONIX40 M1 PO (13:23)
[2018-09-18 14:21] VITALS: BP 138/51
== END 2018-09-18 13:40 | disposition home or self-care (01) | DRG 189 ==
LOC: M.ERS 17:51 → M.2W 19:33 → M.TBA-ER 19:33 → M.2W 21:29
PROVIDERS: Personal Emergency Response Attendant; ADMIT Family Medicine
DX: J96.01 Acute respiratory failure with hypoxia (principal); J44.1 Chronic obstructive pulmonary disease with (acute) exacerbation; I13.0 Hypertensive heart and chronic kidney disease with heart failure and stage 1 through stage 4 chronic kidney disease, or unspecified chronic kidney disease; I50.42 Chronic combined systolic (congestive) and diastolic (congestive) heart failure; K21.9 Gastro-esophageal reflux disease without esophagitis; N18.3 Chronic kidney disease, stage 3 (moderate); I25.10 Atherosclerotic heart disease of native coronary artery without angina pectoris; Z66 Do not resuscitate; I73.9 Peripheral vascular disease, unspecified; I25.5 Ischemic cardiomyopathy; I35.0 Nonrheumatic aortic (valve) stenosis; E78.5 Hyperlipidemia, unspecified; Z95.820 Peripheral vascular angioplasty status with implants and grafts; Z95.5 Presence of coronary angioplasty implant and graft; Z87.891 Personal history of nicotine dependence; Z85.46 Personal history of malignant neoplasm of prostate; Z79.82 Long term (current) use of aspirin; Z79.899 Other long term (current) drug therapy

== ENCOUNTER → 2019-04-20 | Outpatient (CLI) | payer MEDICARE, OTHER ==
[~2019-04-20] MED LIST changes: +COREG12.5 MG PO; +PREDNISONE 20 M20 MG PO; +PROTONIX40 M1 PO; +THERA M PLUS T1 EAC2 PO
[2019-04-20 10:19] LABS: CREATININE 1.4 mg/dL (0.6-1.3); POTASSIUM 4.7 mmol/L (3.5-5.1)
== END ==
LOC: M.LAB 09:14
PROVIDERS: Registered Nurse
DX: I25.5 Ischemic cardiomyopathy (principal)

== ENCOUNTER → 2019-05-03 | Outpatient (CLI) | payer MEDICARE, OTHER ==
[2019-05-03 10:15] LABS: CALCIUM 9.2 mg/dL (8.5-10.1); CREATININE 1.2 mg/dL (0.6-1.3); POTASSIUM 4.5 mmol/L (3.5-5.1)
== END ==
LOC: M.LAB 08:58
PROVIDERS: Registered Nurse
DX: I10 Essential (primary) hypertension (principal); I25.5 Ischemic cardiomyopathy; I25.118 Atherosclerotic heart disease of native coronary artery with other forms of angina pectoris

== ENCOUNTER → 2019-06-10 | Outpatient (CLI) | payer MEDICARE, OTHER | LOC: EDUNIT# → M.ULTRA 08:52 | DX: I65.23 Occlusion and stenosis of bilateral carotid arteries (principal); R09.89 Other specified symptoms and signs involving the circulatory and respiratory systems ==

== ENCOUNTER 2019-06-26 09:56 | Emergency (ER) | payer MEDICARE, OTHER ==
[~2019-06-26] VITALS: Ht 170.2 cm; Wt 74.8 kg
[2019-06-26] MEDS ORDERED: NITROSTAT0.4 MG SUBLING (10:15)
[2019-06-26] MEDS ORDERED: BACTRIM DS TAB1 EACH PO (10:16)
[2019-06-26 10:26] LABS: URINE BILIRUBIN NEGATIVE (Negative); URINE BLOOD 3+ (Negative); URINE CLARITY CLOUDY; URINE COLOR RED; URINE GLUCOSE-RANDOM NEGATIVE (Negative); URINE KETONES NEGATIVE (Negative); URINE LEUKOCYTES-REFLEX NEGATIVE (Negative); URINE NITRITE-REFLEX NEGATIVE (Negative); URINE PROTEIN 2+ (Negative)
[2019-06-26 10:29] LABS: SQUAMOUS NONE SEEN /LPF (0-3)
[2019-06-26 10:30] LABS: URINE RBC >20 Many /HPF (0-2); URINE WBC-REFLEX None Seen /HPF (0-5)
[2019-06-26 10:31] LABS: BACTERIA-REFLEX 1-9 Few /HPF (None Seen); CASTS None Seen /LPF (None Seen); CRYSTALS None Seen /LPF (None Seen); MUCUS None Seen strn/LPF (None Seen)
[2019-06-26 10:52] LABS: ABSOLUTE EOSINOPHILS 0.1 thou/uL (0.0-0.7); ABSOLUTE LYMPHOCYTES 0.7 thou/uL (0.8-5.3); ABSOLUTE MONOCYTES 0.7 thou/uL (0.0-1.2); ABSOLUTE NEUTROPHILS 4.4 thou/uL (1.6-8.1); BASOPHILS 0.3 %; EOSINOPHILS 2.3 %; HEMATOCRIT 39.1 % (42.0-52.0); HEMOGLOBIN 13.7 gm/dL (14.0-18.0); LYMPHOCYTES 12.1 %; MCV 97.1 fL (80.0-100.0); MONOCYTES 11.8 %; MPV 8.4 fl. (7.2-11.1); NUCLEATED RBCS 0 /100WBC; PLATELET COUNT* 183 thou/uL (150-400); POLYS 73.5 %; RBC 4.03 mil/uL (4.50-6.00); RDW-CV 14.5 % (10.5-14.5)
[2019-06-26 10:58] LABS: CALCIUM 8.4 mg/dL (8.5-10.1); CREATININE 1.5 mg/dL (0.6-1.3); POTASSIUM 4.1 mmol/L (3.5-5.1)
[2019-06-26 11:03] LABS: ALBUMIN 3.7 g/dL (3.4-5.0); TOTAL BILIRUBIN 0.8 mg/dL (<0.1-1.0); TOTAL PROTEIN 6.7 g/dL (6.4-8.2)
[2019-06-26 11:04] LABS: APTT 25.8 Seconds (25.0-31.3); PROTIME 10.5 Seconds (9.20-11.50)
[2019-06-26] MEDS ORDERED: KEFLEX500 M2 PO (11:37)
[2019-06-26 11:58] VITALS: BP 154/56
== END 2019-06-26 11:59 | disposition home or self-care (01) ==
LOC: M.ERS 09:56
PROVIDERS: Physician Assistant
DX: R31.9 Hematuria, unspecified (principal); R91.1 Solitary pulmonary nodule; J44.9 Chronic obstructive pulmonary disease, unspecified; I13.0 Hypertensive heart and chronic kidney disease with heart failure and stage 1 through stage 4 chronic kidney disease, or unspecified chronic kidney disease; N18.3 Chronic kidney disease, stage 3 (moderate); I50.32 Chronic diastolic (congestive) heart failure; I25.10 Atherosclerotic heart disease of native coronary artery without angina pectoris; Z85.46 Personal history of malignant neoplasm of prostate

== ENCOUNTER → 2019-08-02 | Outpatient (CLI) | payer MEDICARE, OTHER ==
[~2019-08-02] MED LIST changes: +BACTRIM DS TAB1 EACH PO; +KEFLEX500 M2 PO; +NITROSTAT0.4 MG SUBLING
== END ==
LOC: M.CT 09:03
DX: J44.9 Chronic obstructive pulmonary disease, unspecified (principal); R91.1 Solitary pulmonary nodule; I25.10 Atherosclerotic heart disease of native coronary artery without angina pectoris

== ENCOUNTER → 2020-09-20 | Outpatient (CLI) | payer MEDICARE, OTHER ==
--- NOTE | 2020-09-20 13:03 | 2DMMODE ---
[place] [address] 2 D/M-MODE ECHOCARDIOGRAM Name: MACIEL POSADAS Room: [facility]#: [id number] Admission: 09/20/20 Attend Phys: Chay Moore, Discharge: Date of : 31 Date of Service: 09/20/20 1303 Report #: [id number] THIS REPORT FOR: cc: Kehinde Mosley Kenyon M. FNP Holkins, John M. MD [facility] ~ APPROVED REPORT Study performed: 09/20/2020 10:27:59 EXAM: Comprehensive 2D, Doppler, and color-flow Echocardiogram Patient Location: Out-Patient BSA: 1.82 HR: 63 bpm BP: 130/80 mmHg Other Information Study Quality: Technically Limited Technically limited study due to inability to position patient. Indications Aortic Valve Disease CAD Cardiomyopathy Hypertension/HDD 2D Dimensions IVSd: 17.88 (7-11mm) LVOT Diam: 17.82 (18-24mm) LVDd: 45.37 mm PWd: 15.55 (7-11mm) Ascending Ao: 32.90 (22-36mm) LVDs: 37.93 (25-40mm) Aortic Root: 30.57 mm Volumes Left Atrial Volume (Systole) LA ESV Index: 31.50 mL/m2 Aortic Valve AoV Peak Anam.: 2.13 m/s AO Peak Gr.: 18.09 mmHg LVOT Max P.65 mmHg AO Mean Gr.: 10.41 mmHg LVOT Mean P.43 mmHg LVOT Max V: 1.29 m/[place] [address] 2 D/M-MODE ECHOCARDIOGRAM Name: POSADASSTJUAN MORAE Room: [facility]#: [id number] Admission: 09/20/20 Attend Phys: Chay Moore, Discharge: Date of : 31 Date of Service: 09/20/20 1303 Report #: [id number] AO V2 VTI: 43.20 cm LVOT Mean V: 0.86 m/s STEPHANIE (VTI): 1.59 cm2 LVOT V1 VTI: 27.56 cm Mitral Valve E/A Ratio: 0.89 MV Decel. Time: 205.12 ms MV E Max Anam.: 1.08 m/s MV PHT: 59.49 ms MVA (PHT): 3.70 cm2 TDI E/Lateral E': 18.00 E/Medial E': 18.00 Medial E' Anam.: 0.06 m/s Lateral E' Anam.: 0.06 m/s Pulmonary Valve PV Peak Anam.: 1.14 m/s PV Peak Gr.: 5.24 mmHg Tricuspid Valve RAP Estimate: 5.00 mmHg TR Peak Gr.: 12.85 mmHg RVSP: 17.85 mmHg PA Pressure: 17.85 mmHg Left Ventricle The left ventricle is normal size. Inferior hypokinesis is noted. Mild to moderate concentric left ventricular hypertrophy. Left ventricular systolic function is mildly decreased. LVEF is 50%. Grade I - abnormal relaxation pattern. Right Ventricle The right ventricle is normal size. The right ventricular systolic function is normal. Atria The left atrium size is normal. The right atrium size is normal. Aortic Valve Moderate aortic valve sclerosis. Trace aortic regurgitation. Mild aortic stenosis. Mitral Valve Mild mitral annular calcification. Trace mitral regurgitation. No evidence of mitral valve stenosis. [place] [address] 2 D/M-MODE ECHOCARDIOGRAM Name: MACIEL POSADAS ARON Room: [facility]#: [id number] Admission: 09/20/20 Attend Phys: Chay Moore, Discharge: Date of : 31 Date of Service: 09/20/20 1303 Report #: [id number] The tricuspid valve is normal in structure. Trace tricuspid regurgitation. Pulmonic Valve The pulmonary valve is normal in structure. There is no pulmonic valvular regurgitation. Great Vessels The aortic root is normal in size. IVC is normal in size and collapses >50% with inspiration. Pericardium Small pericardial effusion. <Conclusion> The left ventricle is normal size. Mild to moderate concentric left ventricular hypertrophy. Left ventricular systolic function is mildly decreased. LVEF is 50%. Grade I - abnormal relaxation pattern. The right ventricle is normal size. The left atrium size is normal. The right atrium size is normal. Moderate aortic valve sclerosis. Trace aortic regurgitation. Mild aortic stenosis. Mild mitral annular calcification. Trace mitral regurgitation. No evidence of mitral valve stenosis. The tricuspid valve is normal in structure. IVC is normal in size and collapses >50% with inspiration. Small pericardial effusion. Inferior hypokinesis is noted. <ELECTRONICALLY SIGNED> By: Kole Witt MD, FACC 09/20/20 1303 1303 1303 Kole Witt MD, FACC /INF
== END ==
LOC: M.CRD 10:27
PROVIDERS: ATTEND Internal Medicine Cardiovascular Disease
DX: I35.0 Nonrheumatic aortic (valve) stenosis (principal); I25.118 Atherosclerotic heart disease of native coronary artery with other forms of angina pectoris; I10 Essential (primary) hypertension; I25.5 Ischemic cardiomyopathy

== ENCOUNTER 2020-11-23 12:29 | Inpatient (IN) | payer MEDICARE, OTHER ==
[~2020-11-23] VITALS: Ht 172.7 cm; Wt 101.5 kg
[2020-11-23] VITALS (8 sets, daily range): BP systolic 117–156; BP diastolic 41–73
--- NOTE | ~2020-11-23 | CON ---
[address] [address] CONSULTATION Name: MACIEL POSADAS Room: [address] IN M.R.#: [id number] Admission: 11/23/20 Attend Phys: Twan Lima MD Discharge: Date of : 31 Report #: [id number] THIS REPORT FOR: cc: TRINO LIEBERMAN NP, HALEY E. NP Vasudeva, Amita MD ~ DATE OF CONSULTATION: 11/24/2020 NEPHROLOGY CONSULTATION CONSULTING PHYSICIAN: Dr. Lima. REASON FOR CONSULTATION: Acute kidney injury and hyperkalemia. REASON FOR ADMISSION: Weakness and bradycardia. HISTORY OF PRESENT ILLNESS: This is an 89-year-old male who came in with weakness and was found to have a heart rate of 35. The patient has been feeling weak and had not been eating and drinking well in the last few days. He was also found to have a potassium of 6.0. He was urgently taken to the cardiac labor conciliator and a permanent pacemaker was placed. His potassium also improved with fluids and after stopping his lisinopril, Bactrim, Lasix and after IV fluids. The patient is feeling much better this morning. His creatinine is also down from 3.3 on admission to 2.1 now. His creatinine was 1.2 in 05/2019. The patient reports that he does not follow with any kidney doctor, but he has history of bilateral renal artery stents in the past. His blood pressure is well controlled. He also takes ibuprofen one tablet once a day. ALLERGIES: No known drug allergies. REVIEW OF SYSTEMS: As mentioned in history of present illness, otherwise 10-point review of systems are negative. HOME MEDICATIONS: Include furosemide, Lasix 80 mg once a day, aspirin 81 mg twice a day, nitroglycerin as needed, Bactrim, lisinopril, and Imdur. PAST MEDICAL AND SURGICAL HISTORY: Includes renal stents, femoral stent, eye surgery, CAD, COPD, PVD, hypertension, diastolic congestive heart failure, prostate cancer. He has combination of systolic and diastolic congestive heart failure, ejection fraction 40-45% as per Cardiology, chronic kidney disease question eloy, recent baseline creatinine is not known. FAMILY HISTORY: Not contributory in this 89-year-old male. SOCIAL HISTORY: Former smoker, use alcohol [place] [address] CONSULTATION Name: MACIEL POSADAS Room: [address]#: [id number] Admission: 11/23/20 Attend Phys: Twan Lima MD Discharge: Date of : 31 Report #: [id number] recreational drugs. PHYSICAL EXAMINATION: VITAL SIGNS: Blood pressure is 108/51, respiratory rate is 17, pulse rate 66, temperature 36.5 and pulse ox 96% on 2 liters oxygen via nasal cannula. GENERAL: The patient is awake and alert and oriented x 3. HEAD AND EYES: Atraumatic, normocephalic. Conjunctivae are normal. Ears, nose, throat normal. Mucous membranes are moist. NECK: No JVD. CHEST: Bilaterally clear to auscultation. CARDIOVASCULAR: S1, S2 normal. No murmurs. ABDOMEN: Soft, nondistended, nontender. LOWER EXTREMITIES: There is no lower extremity edema. NEUROLOGICAL FUNCTION: Grossly neurological function is intact. PSYCHIATRIC: Mood and affect seems to be normal. LABORATORY DATA: WBC 9.1. Sodium is 144, potassium which was 6.0 on admission, down to 4.5, CO2 is 30, creatinine is 2.1, down from 3.3, magnesium is 2.8 and other labs are reviewed. Chest x-ray was reviewed. ASSESSMENT AND PLAN: 1. Acute kidney injury in the setting of volume depletion, Lasix and lisinopril use and his creatinine was 1.2 in 05/2019 and it was 3.3 here and has improved with fluids. Lisinopril, Lasix and Bactrim, all on hold. There is no renal imaging and no UA. 2. Hyperkalemia, possible reason for bradycardia. The patient also had complete heart block status post permanent pacemaker 11/23/2000. Potassium was 6.0 on admission, has improved now. 3. History of renal artery stenosis, renal artery stent in the past. Blood pressure is well controlled. 4. COPD, chronic respiratory failure, stable from that standpoint. 5. Chronic diastolic and congestive heart failure. The patient was dehydrated on arrival. PLAN: 1. Status post IV fluids. Creatinine is improving down to 2.1, okay to orally hydrate him. Potassium has now normalized at 4.5. 2. Continue to hold Lasix, lisinopril and Bactrim. 3. The patient to follow up with us as outpatient. Thank you for this consultation and we will continue to follow with you. [address] [address] CONSULTATION Name: MACIEL POSADAS Room: [address] IN .R.#: [id number] Admission: 11/23/20 Attend Phys: Twan Lima MD Discharge: Date of : 31 Report #: [id number] Also, as mentioned in history, the patient was taking ibuprofen daily which also contributed to acute kidney injury and hyperkalemia. I have asked him to stay away from NSAIDs. We will sign off now, please call with any questions. As mentioned above. Follow up with us in about 3-4 weeks after discharge. By: 0946 [id number] Mcgrath MD /yao
--- NOTE | ~2020-11-23 | EMS ---
[place] [id number] EMS Patient Care Report Name: MACIEL POSADAS Room: [place] [address] [facility]#: [id number] Admission: 11/23/20 Attend Phys: Twan Lima MD Discharge: Date of : 31 Report #: [id number] THIS REPORT FOR: //name// Report Transmitted: 11/23/2020 15:32 EMS Care Summary [facility] Incident [id number] @ 11/23/2020 11:07 Incident Location [address] [place] [address] Patient MACIEL POSADAS Male, 89 Years 1930 Patient Address [address] [place] [address] Patient History Congestive Heart Failure (CHF),Chronic Obstructive Pulmonary Disease (COPD),Hypertension (HTN),Stroke/CVA, Patient Allergies Sulfur allergy, Patient Medications Lasix, Chief Complaint SLOW HEART RATE Disposition Transported No Lights/[place] Dispatch Reason Heart Problems/AICD Transported To [facility] Narrative MED 1 WAS DISPATCHED TO A RESIDENCE FOR A SICK. MED 1 ARRIVED [place] [address] EMS Patient Care Report Name: MACIEL POSADAS Room: 170[address] [facility]#: [id number] Admission: 11/23/20 Attend Phys: Twan Lima MD Discharge: Date of : 31 Report #: [id number] THE PATIENT WHO GOES BY ARON WAS FOUND ALERT AND ORIENTED IN NO APPARENT DISTRESS SITTING AT THE KITCHEN TABLE. FAMILY STATED THAT THEY WERE HAVING A HARD TIME GETTING A BLOOD PRESSURE READING AND WERE GETTING A LOW HEART RATE AND WANTED TO MAKE SURE THAT WAS ACCURATE. ARON STATED THAT HE HAD BEEN FEELING WEAK FOR THE PAST 2 WEEKS BUT HAS JUST NOW STARTED TO HAVE A LOW HEART RATE. VITALS AND A 12-LEAD ARE TAKEN. ARON UNDERSTANDS THAT HIS HEART RATE IS LOW AND AGREES TO GOT TO THE HOSPITAL. ARON IS ASSISTED TO THE COT WHERE THE STRAPS ARE FASTENED AND THE RAILS PLACED IN THE UPRIGHT POSITION. THE COT IS SECURED IN THE BACK OF THE AMBULANCE WITH THE DOORS CLOSED. VASCULAR ACCESS IS OBTAINED AND ATROPINE IS GIVEN WITH LITTLE CHANGE. ARON IS NOT COMPLAINING OF ANY SIDE-EFFECTS OTHER THAN WEAKNESS SO PACING IS NOT PREFORMED. MED 1 BEGAN TRANSPORT. EN ROUTE ARON REST ON THE COT IN NO APPARENT DISTRESS. VITALS ARE MONITORED MEDICAL HISTORY AND ALLERGIES ARE RECEIVED. RADIO REPORT IS GIVEN TO THE HOSPITAL WITH NO QUESTIONS OR ORDERS RECEIVED. MED 1 ARRIVED AT DESTINATION WITHOUT INCIDENT. PATIENT CARE AND REPORT IS GIVEN TO STAFF ARON IS ASSISTED TO THE BED IN ROOM 10. MED 1 CLEAR. [place]AM[place], [id number] Initial Vitals @11:21P: 32,R: 18,BP: 140/90,Pain: 0/10,GCS: 15,Glucose: 117,SpO2: 91,Revised Trauma: 12, @11:55P: 39,R: 18,BP: 141/65,Pain: 0/10,GCS: 15,SpO2: 96,Revised Trauma: 12, @12:11P: 35,R: 18,BP: 140/51,Pain: 0/10,GCS: 15,SpO2: 98,Revised Trauma: 12, @11:25P: 32,R: 18,BP: 126/53,Pain: 0/10,GCS: 15,SpO2: 95,Revised Trauma: 12, @11:31P: 32,R: 18,Pain: 0/10,GCS: 15,MS Suspected: false @11:30P: 30,R: 18,Pain: 0/10,GCS: 15,SpO2: 97,MS Suspected: false @11:40P: 32,R: 18,BP: 145/55,Pain: 0/10,GCS: 15,SpO2: 97,Revised Trauma: 12, @11:45P: 42,R: 18,BP: 146/54,Pain: 0/10,GCS: 15,SpO2: 99,Revised Trauma: 12, @11:46P: 39,R: 18,Pain: 0/10,GCS: 15,SpO2: 97,MS Suspected: false Assessments @11:20MENTAL:Event Oriented,Time Oriented,Person Oriented,Place Oriented,SKIN:HEENT:LUNG SOUNDS:ABDOMEN:PELVIS//GI:EXTREMITIES:Left Arm: Weakness,Right Arm: Weakness,Left Leg: Weakness,Capillary Refill: Right Lower: [place] [address] EMS Patient Care Report Name: MACIEL POSADAS Room: [address] IN M.R.#: [id number] Admission: 11/23/20 Attend Phys: Twan Lima MD Discharge: Date of : 31 Report #: [id number] < 2 Sec,Right Leg: Weakness,Capillary Refill: Right Upper: < 2 Sec,Capillary Refill: Left Lower: < 2 Sec,Capillary Refill: Left Upper: < 2 Sec,PULSE:Radial: 2+ Normal,NEURO:@11:58MENTAL:Event Oriented,Place Oriented,Time Oriented,Person Oriented,SKIN:HEENT:LUNG SOUNDS:ABDOMEN:PELVIS//GI:EXTREMITIES:Right Arm: Weakness,Right Leg: Weakness,Left Leg: Weakness,Left Arm: Weakness,Capillary Refill: Left Lower: < 2 Sec,Capillary Refill: Right Upper: < 2 Sec,Capillary Refill: Left Upper: < 2 Sec,Capillary Refill: Right Lower: < 2 Sec,PULSE:Radial: 2+ Normal,NEURO: Impression Cardiac arrhythmia/dysrhythmia Procedures @11:20ALS AssessmentResponse: UnchangedSucceeded@11:40Normal Saline (.9% NaCl) 20cc (18 ga) Site: Antecubital-LeftResponse: UnchangedSucceeded@11:41Atropine - 1 Milligrams (mg) - Intravenous (IV)Response: Unchanged@11:35Oxygen FlowRate: 3 Device: Nasal Cannula (NC) Response: ImprovedSucceeded@11:3112-Lead ECG@11:3012-Lead ECG@11:4612-Lead ECG Timeline 11:05,Call Received 11:07,Dispatched 11:09,En Route 11:19,On Scene 11:20,At Patient 11:20,ALS Assessment,Response: UnchangedSucceeded, 11:21,BP: 140/90 M,PULSE: 32,RR: 18 R,SPO2: 91 Ox,ETCO2: ,B,PAIN: 0,GCS: 15, 11:25,BP: 126/53 M,PULSE: 32,RR: 18 R,SPO2: 95 Ox,ETCO2: ,BG: ,PAIN: 0,GCS: 15, 11:30,12-Lead ECG, 11:30,BP: / M,PULSE: 30,RR: 18 R,SPO2: 97 Ox,ETCO2: ,BG: ,PAIN: 0,GCS: 15, 11:31,12-Lead ECG, 11:31,BP: / M,PULSE: 32,RR: 18 R,SPO2: Ox,ETCO2: ,BG: ,PAIN: 0,GCS: 15, 11:35,Oxygen FlowRate: 3 Device: Nasal Cannula (NC) Response: ImprovedSucceeded, 11:40,Normal Saline (.9% NaCl) 20cc 18 ga Site: Antecubital-Left,Response: UnchangedSucceeded, 11:40,BP: 145/55 M,PULSE: 32,RR: 18 R,SPO2: 97 Ox,ETCO2: ,BG: ,PAIN: 0,GCS: 15, 11:41,Atropine - 1 Milligrams (mg) - Intravenous (IV),Response: Unchanged 11:42,Depart Scene 11:45,BP: 146/54 M,PULSE: 42,RR: 18 R,SPO2: 99 Ox,ETCO2: ,BG: ,PAIN: 0,GCS: 15, 11:46,12-Lead ECG, 11:46,BP: / M,PULSE: 39,RR: 18 R,SPO2: 97 Ox,ETCO2: ,BG: ,PAIN: 0,GCS: 15, 11:55,BP: 141/65 M,PULSE: 39,RR: 18 R,SPO2: 96 Ox,ETCO2: ,BG: ,PAIN: 0,GCS: 15, 12:11,BP: 140/51 M,PULSE: 35,RR: 18 R,SPO2: 98 Ox,ETCO2: ,BG: ,PAIN: 0,GCS: 15, 12:26,At Destination 13:10,Call Closed [facility] [address] [place] [address] EMS Patient Care Report Name: MACIEL POSADAS Room: [facility]10 ADM IN .R.#: [id number] Admission: 11/23/20 Attend Phys: Twan Lima MD Discharge: Date of : 31 Report #: [id number] Disclaimer v1.1 Copyright 2020 [employer] This EMS Care Summary contains data elements from the applicable legal record (which may be displayed differently). It is designed to provide pertinent information for the following purposes: continuity of care, clinical quality, and state data reporting. The complete legal record is available to ED staff and administrators of the receiving hospital in [facility]'s Patient Tracker. All data is provided "as is."
[2020-11-23 13:02] LABS: HEMATOCRIT 41.1 % (42.0-52.0); HEMOGLOBIN 13.8 gm/dL (14.0-18.0); MCH 32.5 pg (26.0-34.0); MCHC 33.5 g/dL (28.0-37.0); MPV 8.5 fl. (7.2-11.1); NUCLEATED RBCS 0 /100WBC; PLATELET COUNT* 179 thou/uL (150-400); RBC 4.24 mil/uL (4.50-6.00); RDW-CV 13.4 % (10.5-14.5); WBC 9.1 thou/uL (4.0-11.0)
[2020-11-23 13:24] LABS: CALCIUM 9.9 mg/dL (8.5-10.1); CREATININE 3.3 mg/dL (0.6-1.3); MAGNESIUM 2.8 mg/dL (1.8-2.4); TOTAL BILIRUBIN 0.6 mg/dL (<0.1-1.0); TOTAL PROTEIN 7.3 g/dL (6.4-8.2)
[2020-11-23 13:46] LABS: ABSOLUTE EOSINOPHILS 0.3 thou/uL (0.0-0.7); ABSOLUTE LYMPHOCYTES 1.3 thou/uL (0.8-5.3); ABSOLUTE MONOCYTES 0.6 thou/uL (0.0-1.2); ABSOLUTE NEUTROPHILS 6.9 thou/uL (1.6-8.1); PLATELET ESTIMATE ADEQUATE
--- NOTE | 2020-11-23 16:26 | EKG ---
[place] [address] ELECTROCARDIOGRAM REPORT Name: CUAUHTEMOCMACIEL Room: [place] [address] ADM IN .R.#: [id number] Admission: 11/23/20 Attend Phys: Tawn Lima, Discharge: Date of : 31 Date of Service: 11/23/20 1230 Report #: [id number] THIS REPORT FOR: //name// [facility] ED Test Date: 2020-11-23 Test Time: 12:30:49 Pat Name: MACIEL POSADAS Department: Room: [facility] Gender: M Services Tech: CHRISTINE : 1930 Requested By: Varinder Yoder Order Number: [id number] MD: Kole Witt Measurements Intervals [facility] Rate: 33 P: MT: QRS: -28 QRSD: 155 T: 150 QT: 476 QTc: 353 Interpretive Statements Idioventricular escape rhythm at a markedly bradycardic rate Left bundle branch block conduction pattern Compared to ECG 09/16/2018 18:06:29 Idioventricular escape rhythm is noted Electronically Signed On 11-23-2020 16:26:01 CDT by Kole Witt [email or web address] <ELECTRONICALLY SIGNED> By: Kole Witt MD, FAC 11/23/20 1626 1230 1230 Kole Witt MD, FAC /EPI
--- NOTE | 2020-11-23 16:31 | H ---
[place] [address] HISTORY AND PHYSICAL Name: MACIEL POSADAS Room: [place] [address] ADM IN Angelique.Alek.#: [id number] Admission: 11/23/20 Attend Phys: Twan Lima MD Discharge: Date of : 31 Report #: [id number] THIS REPORT FOR: cc: TRINO LIEBERMAN NP, HALEY E. NP Liston, Michael J. MD [facility] ~ cc: Maverick Quesada DO ADMIT DATE: 11/23/2020 INDICATION: Symptomatic bradycardia. HISTORY OF PRESENT ILLNESS: The patient is an 89-year-old gentleman with history of coronary artery disease and ischemic cardiomyopathy. Most recent EF is 45-55% by noninvasive studies. He presents with complaints of increasing fatigue and dyspnea as well as neck pain for the last couple of weeks. He was noted at home to have a pulse rate in the 30s. In the Emergency Room, EKG shows what appears to be a junctional rhythm with intraventricular conduction delay. He is not having speedy chest pain at this time. Initial labs are pending at this time. PAST MEDICAL HISTORY: 1. Coronary artery disease. 2. Hyperlipidemia. 3. Hypertension. 4. Ischemic cardiomyopathy. 5. Peripheral vascular disease. 6. History of supraventricular tachycardia. 7. Carotid artery disease. 8. COPD. 9. Non-rheumatic aortic valvular stenosis that has been mild. 10. Chronic diastolic heart failure. SOCIAL HISTORY: The patient is a former smoker and quit smoking remotely. Drinks alcohol occasionally. He lives with his son. FAMILY HISTORY: Noncontributory. ALLERGIES: SULFA ANTIBIOTICS. CURRENT MEDICATIONS: Atorvastatin 40 mg p.o. daily, finasteride 5 mg daily, furosemide 40 mg q.a.m. with extra tablet as needed, ibuprofen 200 mg p.r.n., isosorbide mononitrate 60 mg daily, lisinopril 20 mg daily, Nitrostat sublingual 0.4 mg p.r.n., Flomax 0.4 mg 2 times daily. REVIEW OF SYSTEMS: Positive for fatigue, dyspnea on exertion, cough, [place] [address] HISTORY AND PHYSICAL Name: MACIEL POSADAS Room: [address] IN [facility]#: [id number] Admission: 11/23/20 Attend Phys: Twan Lima MD Discharge: Date of : 31 Report #: [id number] pain, dizziness and lightheadedness. Otherwise, 14-point review of systems was unremarkable. PHYSICAL EXAMINATION: VITAL SIGNS: Heart rate 30, blood pressure 130/54. GENERAL: This is a pleasant elderly gentleman who does not appear to be in distress. HEENT: Head is normocephalic, atraumatic. Extraocular muscles intact. The patient is wearing glasses. NECK: Shows no jugular venous distention. CHEST: Reveals clear lung meneses. CARDIAC: Reveals a regular rhythm that is bradycardic. There is a 2/6 systolic ejection murmur heard over the right and left sternal border. ABDOMEN: Reveals normal bowel sounds. Abdomen is soft, nontender. EXTREMITIES: Shows no edema. SKIN: Dry. DIAGNOSTIC DATA: A 12-lead EKG shows what appears to be a junctional bradycardia with a bundle branch block. Chest x-ray shows cardiomegaly with no acute cardiopulmonary abnormality. LABORATORY DATA: CBC is essentially within normal limits. IMPRESSION AND RECOMMENDATIONS: 1. Symptomatic bradycardia. The patient has had bradycardia in the past, necessitating discontinuation of various medications including beta blockers in the past. At this point, I believe he would benefit from dual chamber pacemaker placement to improve heart rate and symptoms. This would also allow for improved medical management of his heart failure and underlying coronary artery disease. 2. Coronary artery disease, presently stable. Troponins are pending at this time. We will continue antiplatelet therapy and risk factor modification. 3. Diastolic heart failure. Possible acute exacerbation due to underlying bradyarrhythmias. We will treat symptomatically with Lasix as needed. 4. Hypertension. Blood pressure adequately controlled at present. 5. Dyslipidemia. Continue current statin agent. 6. Chronic obstructive pulmonary disease appears relatively stable at this time. <ELECTRONICALLY SIGNED> By: Chay Moore MD, FACC 11/23/20 1631 1216 1235Chay Moore MD, FACC /nt
--- NOTE | 2020-11-23 16:46 | CARD ---
[address] [address] CARDIAC CATH REPORT Name: MACIEL POSADAS Room: [address] IN [facility]#: [id number] Admission: 11/23/20 Attend Phys: Twan Lima MD Discharge: Date of : 31 Report #: [id number] THIS REPORT FOR: cc: TRINO LIEBERMAN NP, HALEY E. NP Liston, Michael J. MD [facility] ~ APPROVED REPORT Study performed: 11/23/2020 14:46:43 Event Personnel: Chay Moore Electric Locomotive Crane Operator, Makenzie Pichardo RN RN, Ismael Frey RTR Scrub, Monique Taylor RTR Monitor Exam: Insertion of Dual Chamber Permanent Pacemaker The patient is a 89 year-old male with a history of . Conscious Sedation Start time: 15:00 End Time: 15:27 Fentanyl 25 mcg Versed 1 mg Implanted Devices: Medtronic Dual PPM Generator- Rhina S DR ELZA Fagan SN:[id number] Medtronic A Lead- CapSureFix Novus MRI SureScan 5076-45 cm SN:[id number] Medtronic V Lead- CapSureFix Novus MRI SureScan 5076-52 cm SN:[id number] Procedure The patient underwent informed consent. We discussed the details of the procedure including the risks, which include, but not limited to bleeding, infection, vascular damage, cardiac perforation, and pneumothorax. He understood these risks and was willing to proceed. As such, he was brought to the EP/Cardiac Catheterization laboratory in a fasting and sedated state and prepped and draped in a sterile fashion, received IV antibiotics prior to initiation of the procedure and a venogram was performed showing patency of the left axillary vein. The patient underwent conscious sedation, with no related complications. The patient was brought to the EP/Cardiac Catheterization laboratory and the left chest and shoulder were prepped and draped in a sterile manner. During this case, Fluoroscopy and no contrast [place] [address] CARDIAC CATH REPORT Name: MACIEL POSADAS ARON Room: [address] IN [facility]#: [id number] Admission: 11/23/20 Attend Phys: Twan Lima MD Discharge: Date of : 31 Report #: [id number] IV conscious sedation was used throughout procedure with appropriate monitoring and was performed in the presence of a registered nurse who was an independent trained observer other than the physician performing the procedure. The left subclavian region was infiltrated with 2% Lidocaine with Epinephrine subcutaneous anesthesia. A transverse incision was made in the left upper chest cavity. The subcutaneous pocket was formed via blunt dissection. Percutaneous venous access was achieved and an introducer sheath was inserted into the left Subclavian vein. Utilizing fluoroscopic guidance, the atrial and ventricular lead wires were advanced over the wires and positioned in the right atria and right ventricle respectively. Capturing and sensing thresholds were verified. Electrode Parameters P Wave: 1.2 mV R Wave: 10.1 mV Atrial Threshold: 3.5 V at 0.50 ms Ventricular Threshold: 0.75 V at 0.50 ms Atrial Resistance: 494 ohms Ventricular Resistance: 703 ohms Dual Chamber The atrial and ventricular leads were then secured using 0 silk sutures. The subcutaneous pocket was irrigated with ancef antibiotic solution.The atrial and ventricular leads were attached to the appropriate receptacles on the pulse generator and set screws firmly tightened to insure adequate contact and stability. The lead and pulse generator were placed into the subcutaneous pocket. Sharp and sponge counts were confirmed to be correct. At this time the pocket was closed subcutaneously with a 2.0 Vicryl and the skin was closed with a 4.0 Vicryl. The operative site was dressed in sterile fashion with Benzoin spray, steri strips, and stratabsorb and the patient was transferred to the floor in stable condition. Complications The patient tolerated the procedure well and there were no complications associated with the procedure. Findings Specimens Removed: No Estimated Blood Loss: 5 [place] [address] CARDIAC CATH REPORT Name: CUAUHTEMOCMACIEL Room: [address] IN .R.#: [id number] Admission: 11/23/20 Attend Phys: Twan Lima MD Discharge: Date of : 31 Report #: [id number] Conclusion 1. Complete heart block. 2. Successful placement of a dual-chamber pacemaker with atrial and ventricular lead placement. Recommendations 1. Follow-up site check in 1 week. 2. Follow-up device interrogation 1 month. <ELECTRONICALLY SIGNED> By: Chay Moore MD, FACC 11/23/20 1645 [id number] Moore MD, FACC /INF
[2020-11-23 20:13] LABS: CALCIUM 10.4 mg/dL (8.5-10.1); CREATININE 2.9 mg/dL (0.6-1.3)
[2020-11-23 20:17] LABS: POTASSIUM 4.8 mmol/L (3.5-5.1)
[2020-11-24] VITALS (7 sets, daily range): BP systolic 108–158; BP diastolic 51–70
[2020-11-24 05:59] LABS: ABSOLUTE EOSINOPHILS 0.2 thou/uL (0.0-0.7); ABSOLUTE LYMPHOCYTES 0.7 thou/uL (0.8-5.3); ABSOLUTE NEUTROPHILS 7.2 thou/uL (1.6-8.1); BASOPHILS 0.2 %; EOSINOPHILS 2.4 %; HEMATOCRIT 43.4 % (42.0-52.0); HEMOGLOBIN 14.9 gm/dL (14.0-18.0); LYMPHOCYTES 7.9 %; MCH 33.1 pg (26.0-34.0); MCHC 34.4 g/dL (28.0-37.0); MCV 96.2 fL (80.0-100.0); MONOCYTES 10.9 %; MPV 8.5 fl. (7.2-11.1); NUCLEATED RBCS 0 /100WBC; PLATELET COUNT* 176 thou/uL (150-400); POLYS 78.6 %; RBC 4.51 mil/uL (4.50-6.00); RDW-CV 13.2 % (10.5-14.5); WBC 9.1 thou/uL (4.0-11.0)
[2020-11-24 06:13] LABS: CALCIUM 9.9 mg/dL (8.5-10.1); CREATININE 2.1 mg/dL (0.6-1.3); POTASSIUM 4.5 mmol/L (3.5-5.1)
[2020-11-25 01:58] VITALS: BP 166/64
[2020-11-25 04:22] VITALS: BP 164/72
[2020-11-25 04:35] LABS: HEMATOCRIT 40.1 % (42.0-52.0); HEMOGLOBIN 13.5 gm/dL (14.0-18.0); MCH 32.6 pg (26.0-34.0); MCHC 33.8 g/dL (28.0-37.0); MCV 96.7 fL (80.0-100.0); MPV 8.6 fl. (7.2-11.1); RBC 4.15 mil/uL (4.50-6.00); RDW-CV 13.1 % (10.5-14.5); WBC 7.2 thou/uL (4.0-11.0)
[2020-11-25 04:40] LABS: ALBUMIN 3.6 g/dL (3.4-5.0); CALCIUM 9.3 mg/dL (8.5-10.1); MAGNESIUM 2.3 mg/dL (1.8-2.4); TOTAL BILIRUBIN 0.6 mg/dL (<0.1-1.0); TOTAL PROTEIN 6.8 g/dL (6.4-8.2)
[2020-11-25 04:41] LABS: CREATININE 1.6 mg/dL (0.6-1.3); POTASSIUM 4.5 mmol/L (3.5-5.1)
[2020-11-25 09:00] VITALS: BP 138/52
[2020-11-25 12:12] VITALS: BP 148/55
== END 2020-11-25 13:05 | disposition home health service (06) | DRG 242 ==
LOC: M.ERS 12:29 → M.TBA-ER 12:41 → M.2W 12:41 → M.TBA-ER 15:37 → M.2W 17:42
PROVIDERS: Emergency Medicine Emergency Medical Services; Internal Medicine; Internal Medicine Cardiovascular Disease; ADMIT Internal Medicine; ATTEND Internal Medicine
PROC: 0JH606Z Insertion of Pacemaker, Dual Chamber into Chest Subcutaneous Tissue and Fascia, Open Approach (ICD-10-PCS; principal; 2020-11-23)
PROC: 02H63JZ Insertion of Pacemaker Lead into Right Atrium, Percutaneous Approach (ICD-10-PCS; principal; 2020-11-23)
PROC: 02HK3JZ Insertion of Pacemaker Lead into Right Ventricle, Percutaneous Approach (ICD-10-PCS; principal; 2020-11-23)
DX: I44.2 Atrioventricular block, complete (principal); N17.0 Acute kidney failure with tubular necrosis; I13.0 Hypertensive heart and chronic kidney disease with heart failure and stage 1 through stage 4 chronic kidney disease, or unspecified chronic kidney disease; I50.42 Chronic combined systolic (congestive) and diastolic (congestive) heart failure; I42.9 Cardiomyopathy, unspecified; J96.10 Chronic respiratory failure, unspecified whether with hypoxia or hypercapnia; E86.0 Dehydration; E78.5 Hyperlipidemia, unspecified; R91.8 Other nonspecific abnormal finding of lung field; I25.10 Atherosclerotic heart disease of native coronary artery without angina pectoris; J44.9 Chronic obstructive pulmonary disease, unspecified; I73.9 Peripheral vascular disease, unspecified; N18.30 Chronic kidney disease, stage 3 unspecified; E87.5 Hyperkalemia; Z20.822 Contact with and (suspected) exposure to COVID-19; Z79.899 Other long term (current) drug therapy; Z79.82 Long term (current) use of aspirin; Z85.46 Personal history of malignant neoplasm of prostate; Z87.891 Personal history of nicotine dependence